=== PATIENT | female | born 1945 | race African-American/Black ===

== ENCOUNTER 2020-08-05 07:28 | Day surgery (SDC) | payer OTHER ==
[2020-08-04 09:24] VITALS: BMI 30.7
[~2020-08-05 07:28] MED LIST: TOBRAMYCIN/DEXAMETHASONE OPHTH. OINTMENT 1 TUBE TP ONE
[2020-08-05] MEDS ORDERED: ACETAMINOPHEN 325 MG TABLET (FP) PO PRN ×2 (07:29→13:58)
[2020-08-05] MEDS ORDERED: PHENYLEPHRINE 2.5% OPHTH SOLN 15 ML BOTTLE OP SCH (07:30)
[2020-08-05] MEDS ORDERED: TROPICAMIDE 1% OPHTH SOLN 15 ML BOTTLE OP SCH (07:30)
[2020-08-05] MEDS ORDERED: KETOROLAC TROMETHAMINE 0.5% EYE DROP 1 DROP DROPS OP SCH (07:30)
[2020-08-05] MEDS ORDERED: CIPROFLOXACIN HCL 0.3% OPHTH 2.5ML BOTTLE OP SCH (07:30)
--- OUTSIDE RECORDS SUMMARY | 2020-08-05 07:46 | XMS ---
:1945 Author Organization [facility] Support Name Relationship Address Phone RE, RETIRED Unavailable Unavailable Unavailable RE Unavailable Unavailable Unavailable [facility] [address] [address] [phone] [place] [address] Re-disclosure Warning The records that you are about to access may contain information from federally- assisted alcohol or drug abuse programs. If such information is present, then the following federally mandated warning applies: This information has been disclosed to you from records protected by federal confidentiality rules (42 CFR part 2). The federal rules prohibit you from making any further disclosure of this information unless further disclosure is expressly permitted by the written consent of the person to whom it pertains or as otherwise permitted by 42 CFR part 2. A general authorization for the release of medical or other information is NOT sufficient for this purpose. The Federal rules restrict any use of the information to criminally investigate or prosecute any alcohol or drug abuse patient.The records that you are about to access may contain highly sensitive health information, the redisclosure of which is protected by Article 27-F of the [facility] Public Health law. If you continue you may haveaccess to information: Regarding HIV / AIDS; Provided by facilities licensed or operated by the [facility] Office of Mental Health; or Provided by the [facility] Office for People With Developmental Disabilities. If such information is present, then the following [facility] mandated warning applies: This information has been disclosed to you from confidential records which are protected by state law. State law prohibits you from making any further disclosure of this information without the specific written consent of the person to whom it pertains, or as otherwise permitted by law. Any unauthorized further disclosure in violation of state law may result in a fine or alf sentence or both. A general authorization for the release of medical or other information is NOT sufficient authorization for further disclosure. Insurance Providers Payer name Policy type Policy ID Covered Covered green party's Policy P mitul / Coverage green party ID relationship to [employer] ormation type dang MEDICAID [id number] S [id number] MEDICARE [id number] SP [id number] MEDICAID [id number] SP [id number] Results ID Date Data Source [id number] 07/31/2020 12:00:00 PM EDT [facility] Name Value Range Interpretation Description Data Sup porting Code Source(s) Document(s ) SARS [facility] coronavirus 2 RNA This lab was ordered by [facility] and reported by [facility]. Procedure
[2020-08-05] MEDS ORDERED: TROPICAMIDE 1% OPHTH SOLN 15 ML BOTTLE ONE (07:59)
[2020-08-05] MEDS ORDERED: MIDAZOLAM HCL 2 MG/2 ML SINGLE DOSE VIAL ONE (08:23)
--- NOTE | 2020-08-05 08:40 | HP ---
- Patient Scheduled date of Surgery: 08/05/20 Scheduled Surgical Procedure: Phacoemulsification and cataract extraction with PCIOL Affected Eye: Left Chief Complaint (Indication for surgery): Decreased vision affecting ADLs - Ocular History Other Eye History: Other (narrow angles and glaucoma suspect) Eye Medications: vigamox 0/3 ,prolensa 0/1 Previous Eye Surgery: s/p LPI ou - Medical History Illnesses: Hypertension, Hypercholesterolemia, Diabetes Current Medications: Ambulatory Orders Hydrochlorothiazide [Hctz -] 25 mg PO DAILY PRN 11/24/13 Sertraline HCl [Zoloft -] 150 mg PO DAILY 11/24/13 metFORMIN HCL [Glucophage] 1,000 mg PO BID 11/24/13 Amlodipine Besylate [Norvasc -] 10 mg PO DAILY 09/01/15 Cholecalciferol (Vitamin D3) [Vitamin D3] 500 unit PO DAILY 08/04/20 Dunepezil 5 mg PO DAILY 08/04/20 Gabapentin 300 mg PO BID 08/04/20 Glimepiride 4 mg PO DAILY 08/04/20 Multivitamin 1 each PO DAILY 08/04/20 Quietiatine 25 mg PO DAILY 08/04/20 Rosuvastatin Calcium [Crestor] 5 mg PO DAILY 08/04/20 Losartan Potassium 100 mg PO DAILY 08/05/20 Allergies/Adverse Reactions: Allergies Allergy/AdvReac Type Severity Reaction Status Date / Time Penicillins Allergy Verified 08/05/20 07:24 Ocular Examination - Best Corrected Visual Acuity Distance: Right eye: 20/40- Distance: Left eye: 20/40 - External/Slit Lamp Examination Abnormalities: Pi Patent , plateau iris - Intraocular Pressure Intraocular Pressure (mm/Hg) - Right eye: 16 Intraocular Pressure (mm/Hg)-Left eye: 16 - Lens Lens: 3+ NS vacuoles - Vitreous/Retina Vitreous/Retina: C:D 0.45 m/v/p wnl - Special Examination M - Right eye: plano-o.25 x 045 M - Left eye: plano -0.75 x 045 K - Right eye: 44/44.25 x175 K - Left eye: 43.75/44.64 x 145 AL - Right eye: 23.12 AL - Left eye: 23.09 IOL bag: +22.0 AUOOTO IOL sulcus: +21.0 [id number] IOL AC: +19.0 [id number] - Impression Impression: Cataract Left Eye - Plan Plan: Phacoemulsification and cataract extraction - IOL Left eye Post-hospital care will be provided in office on: 08/13/20
--- NOTE | 2020-08-05 08:41 | HP ---
History & Physical Update - History History: Change (see notes) (H and p reviewed by Dr. Hurt ASA allergy noted) - Physical Physical: No Change - Assessment Assessment: No Change - Plan Plan: No Change
[2020-08-05] MEDS ORDERED: PROPOFOL 20 ML ONE (08:53)
[2020-08-05] MEDS ORDERED: KETAMINE HCL 200 MG/20 ML VIAL ONE (08:53)
[2020-08-05] MEDS ORDERED: TETRACAINE 0.5% OPHTH SOLN 2 ML BOTTLE OS ONE (08:55)
[2020-08-05] MEDS ORDERED: BUPIVACAINE HCL/PF 0.75% 10 ML VIAL PNB ONE ×2 (09:00→09:03)
[2020-08-05] MEDS ORDERED: LIDOCAINE HCL/PF 2% SDV 5ML VIAL INF ONE (09:00)
[2020-08-05] MEDS ORDERED: LIDOCAINE HCL 2% (50ML VIAL) INF ONE (09:03)
[2020-08-05] MEDS ORDERED: EPINEPHrine/PF 1 MG/1 ML (1:1,000) AMPULE SQ ONE (09:08)
[2020-08-05] MEDS ORDERED: CHONDROITIN SU A/HYALUR SOD 1 KIT IO ONE (09:09)
[2020-08-05] MEDS ORDERED: TOBRAMYCIN/DEXAMETHASONE OPHTH. OINTMENT 1 TUBE TP ONE (09:34)
--- NOTE | 2020-08-05 09:50 | OP ---
Ophthalmology Operative Note Pre-Operative Diagnosis: Cataract Affected Eye: Left Operation: Phacoemulsification and cataract extraction with PCIOL Findings: Ns Cataract left eye Anesthesiologist: Mynor Hatch Anesthesia: Retrobulbar Specimens Removed: none Estimated blood loss: < 1cc Drains & Tubes with Location: none Operative Report Dictated: Yes
--- NOTE | 2020-08-05 10:15 | OP ---
DATE OF OPERATION: DATE OF DICTATION: 08/05/2020 PREOPERATIVE DIAGNOSIS: Nuclear sclerotic cataract, left eye. POSTOPERATIVE DIAGNOSIS: Nuclear sclerotic cataract, left eye. PROCEDURE: Phacoemulsification and cataract extraction with insertion of posterior chamber intraocular lens, left eye. SURGEON: Viji Virgen MD DIESEL TRACTOR ENGINE MECHANIC: None. ANESTHESIA: Retrobulbar block. ANESTHESIOLOGIST: Mynor Hatch CRNA OPERATIVE PROCEDURE: Following satisfactory intravenous sedation, the patient received local anesthesia using a 50:50 mixture of lidocaine 2% and Marcaine 0.75%. A Van Lint lid block was delivered to the left eye using 3 mL of the mixture and a retrobulbar block using 4 mL of the mixture. The patient was then prepped and draped in the usual sterile fashion so as to expose only the left eye. Ophthalmic Betadine was instilled into the inferior fornix. The lashes were taped out of the surgical field. An eyelid speculum was placed into the left eye. A paracentesis was made in inferior temporal clear cornea at the limbus. Viscoelastic material was instilled into the anterior chamber via paracentesis. A 2.4-mm keratome blade was then used to create the main incision in temporal clear cornea at the limbus. A continuous curvilinear capsulorrhexis was performed using a cystotome and Utrata forceps. Hydrodissection of the lens cortex was performed using BSS on a cannula until the nucleus was noted to be freely rotating. The phacoemulsification tip was then inserted via the main wound and used to scope 2 perpendicular grooves into the lens nucleus. The nucleus was cracked into 4 quadrants. Each quadrant was lifted out of the capsule into the iris plane and individually phacoemulsified. The remaining cortical material was then aspirated using the irrigation/aspiration port. The capsular bag was inflated using ProVisc and a preloaded AcrySof lens model [id number] power +22.0 diopters was injected into the capsular bag. It was centered using a Sinskey hook. The residual viscoelastic material was removed from the anterior chamber using irrigation and aspiration. The wound edges were hydrated using BSS. The wound was tested for leakage and was found to be watertight. Tobradex ointment was placed in the eye, and the speculum was removed from the eye, and the eyelid was closed. A sterile dressing and shield were placed over the eye. The patient was transferred to the recovery room in stable condition, told to follow up in 1 day. VIJI VIRGEN M.D. [id number]
[2020-08-05 10:51] VITALS: BP 154/59; PULSE 84; TEMP 97.7
[2020-08-05] MEDS ORDERED: ONDANSETRON 4 MG/2 ML VIAL IVPUSH PRN (13:58)
[2020-08-05] MEDS ORDERED: LACTATED RINGERS SOLUTION 1,000 ML IV SCH (14:00)
== END 2020-08-05 10:52 | disposition home or self-care (01) ==
LOC: JASU-SURG 07:28
PROVIDERS: ATTEND Ophthalmology
PROC: 08RJ3JZ Replacement of Right Lens with Synthetic Substitute, Percutaneous Approach (ICD-10-PCS; principal; 2020-08-05 08:30)
DX: H25.12 Age-related nuclear cataract, left eye (principal); I10 Essential (primary) hypertension; E11.9 Type 2 diabetes mellitus without complications; E78.5 Hyperlipidemia, unspecified
CPT/HCPCS: 82962

== ENCOUNTER 2021-01-28 15:39 | Inpatient (IN) | payer OTHER ==
[2021-01-28 18:21] LABS: CALCIUM 10.3 mg/dL (8.5-10.1); EOS % 2.6 % (0-4.5); HEMATOCRIT 36.9 % (32.4-45.2); LYMPH % 19.5 % (8-40); MCH 28.4 pg (25.7-33.7); MCHC 32.5 g/dl (32.0-36.0); MEAN CELL VOLUME 87.4 fl (80-96); MEAN PLT VOLUME 8.4 fl (7.5-11.1); MONO % 4.8 % (3.8-10.2); NEUT % 72.1 % (42.8-82.8); PLATELET COUNT 463 K/MM3 (134-434); RBC 4.23 M/mm3 (3.60-5.2); RDW 14.7 % (11.6-15.6); WHITE BLOOD COUNT 10.3 K/mm3 (4.0-10.0)
[2021-01-28 18:23] LABS: BLOOD UREA NITROGEN 20.5 mg/dL (7-18)
[2021-01-28 18:26] LABS: CREATININE 1.6 mg/dL (0.55-1.3)
[2021-01-28 18:31] LABS: INR 1.03 (0.83-1.09); PROTHROMBIN TIME (PATIENT) 12.4 SEC (9.7-13.0)
[2021-01-28 18:33] LABS: ACTIVATED PTT 32.2 SECONDS (25.2-36.5)
[2021-01-28] MEDS ORDERED: SODIUM CHLORIDE 0.9% 500 ML INFUS.BAG IV ONE (19:20)
[2021-01-28] MEDS ORDERED: LOSARTAN POTASSIUM 50 MG TABLET PO ONE (22:10)
[2021-01-28] MEDS ORDERED: amLODIPine BESYLATE 5 MG TABLET (FP) PO ONE (22:10)
[2021-01-28] MEDS ORDERED: QUEtiapine FUMARATE 50 MG TABLET PO ONE (22:10)
[2021-01-28] MEDS ORDERED: DONEPEZIL HCL 5 MG TABLET (FP) PO SCH (22:15)
[2021-01-28] MEDS ORDERED: DONEPEZIL HCL 5 MG TABLET (FP) PO ONE (22:15)
[2021-01-28] MEDS ORDERED: QUEtiapine FUMARATE 25 MG TABLET ONE (22:17)
[2021-01-28] MEDS ORDERED: amLODIPine BESYLATE 5 MG TABLET (FP) ONE (22:17)
[2021-01-28] MEDS ORDERED: LOSARTAN POTASSIUM 50 MG TABLET ONE (22:17)
[2021-01-28 23:29] LABS: EPI CELLS 11 /uL (0-25.1); HYALINE CASTS 1 /uL (0-3.1); URINE APPEARANCE CLEAR; URINE BACTERIA >9,000 /uL (0-1359); URINE BILIRUBIN NEGATIVE (NEGATIVE); URINE COLOR YELLOW; URINE GLUCOSE (UA) NEGATIVE (NEGATIVE); URINE KETONE NEGATIVE (NEGATIVE); URINE LEUK ESTERASE TRACE (NEGATIVE); URINE NITRITE NEGATIVE (NEGATIVE); URINE PROTEIN NEGATIVE (NEGATIVE); URINE RBC 18 /uL (0-23.9); URINE UROBILINOGEN 0.2 mg/dL (0.2-1.0); URINE WBC 45 /uL (0-25.8)
[2021-01-28] MEDS ORDERED: DEXTROSE 5%-NORMAL SALINE 1,000 ML IV SCH (23:30)
[2021-01-29 02:24] VITALS: BMI 29.6
[2021-01-29] MEDS ORDERED: SERTRALINE HCL 50 MG TABLET (FP) PO SCH (07:00)
[2021-01-29 09:10] LABS: BASO % 1.2 % (0-2.0); EOS % 4.2 % (0-4.5); HEMOGLOBIN 11.4 GM/dL (10.7-15.3); LYMPH % 21.2 % (8-40); MCH 28.9 pg (25.7-33.7); MCHC 33.6 g/dl (32.0-36.0); MEAN CELL VOLUME 85.8 fl (80-96); MEAN PLT VOLUME 7.9 fl (7.5-11.1); MONO % 5.8 % (3.8-10.2); NEUT % 67.6 % (42.8-82.8); PLATELET COUNT 419 K/MM3 (134-434); RBC 3.97 M/mm3 (3.60-5.2); RDW 14.6 % (11.6-15.6); WHITE BLOOD COUNT 8.5 K/mm3 (4.0-10.0)
[2021-01-29 09:32] LABS: ALBUMIN 3.4 g/dl (3.4-5.0); BLOOD UREA NITROGEN 19.2 mg/dL (7-18); CALCIUM 9.4 mg/dL (8.5-10.1); MAGNESIUM 1.9 mg/dL (1.8-2.4)
[2021-01-29 09:35] LABS: CREATININE 1.3 mg/dL (0.55-1.3)
[2021-01-29 09:36] LABS: BILIRUBIN,TOTAL 0.5 mg/dL (0.2-1); TOT PROT 6.3 g/dl (6.4-8.2)
[2021-01-29 09:53] VITALS: TEMP 97.8
[2021-01-29] MEDS ORDERED: amLODIPine BESYLATE 10 MG TABLET (FP) PO SCH (10:00)
[2021-01-29] MEDS ORDERED: QUEtiapine FUMARATE 50 MG TABLET PO SCH (10:00)
[2021-01-29] MEDS ORDERED: HEPARIN NA (PORCINE) 5,000 UNITS/ML 1ML VIAL SQ SCH (10:00)
[2021-01-29] MEDS ORDERED: PATIENT'S OWN MEDICATION (NON-FORMULARY) (Sertraline Hcl [Sertraline Hcl] 100 MG Tablet) PO SCH (10:00)
[2021-01-29 14:21] VITALS: BP 158/74; PULSE 89
[2021-01-29] MEDS ORDERED: CEFTRIAXONE 1 GM in DEXTROSE 5%-WATER - 50 ML IVPB ONE (15:30)
[2021-01-29] MEDS ORDERED: DEXTROSE 5%-WATER - 50 ML IVPB ONE (15:38)
[2021-01-29] MEDS ORDERED: cefTRIAXone SODIUM 1 GM VIAL ONE (15:38)
[2021-01-29] MEDS ORDERED: ROSUVASTATIN CA 5 MG TABLET (FP) PO SCH (22:00)
[2021-01-29] MEDS ORDERED: DONEPEZIL HCL 5 MG TABLET (FP) PO SCH (22:00)
== END 2021-01-29 17:59 | disposition home or self-care (01) | DRG 638 ==
LOC: JER 15:39 → JERBED 21:09 → J6S 01-29 00:48
PROVIDERS: ADMIT Internal Medicine; ATTEND Internal Medicine
DX: E11.649 Type 2 diabetes mellitus with hypoglycemia without coma (principal); N39.0 Urinary tract infection, site not specified; F41.8 Other specified anxiety disorders; E78.5 Hyperlipidemia, unspecified; I10 Essential (primary) hypertension; F17.210 Nicotine dependence, cigarettes, uncomplicated; R53.1 Weakness; N17.9 Acute kidney failure, unspecified; D72.829 Elevated white blood cell count, unspecified
CPT/HCPCS: 36415; 70450-TC; 71045-TC-FY; 71250-TC; 73562-TC-LT-FY; 73562-TC-RT-FY; 80048; 80053; 81003; 82550; 82962; 83036; 83735; 84443; 84484; 85025; 85610; 85730; 87086; 87186; 93005; 93010; 99285-25; C9803; J1644; U0003; U0005

== ENCOUNTER 2021-02-08 12:12 | Inpatient (IN) | payer OTHER ==
[2021-02-08 15:16] LABS: BASO % 1.2 % (0-2.0); EOS % 4.4 % (0-4.5); HEMATOCRIT 28.4 % (32.4-45.2); HEMOGLOBIN 9.3 GM/dL (10.7-15.3); LYMPH % 19.5 % (8-40); MCH 28.4 pg (25.7-33.7); MCHC 32.7 g/dl (32.0-36.0); MEAN PLT VOLUME 8.7 fl (7.5-11.1); MONO % 5.5 % (3.8-10.2); NEUT % 69.4 % (42.8-82.8); PLATELET COUNT 405 K/MM3 (134-434); RBC 3.26 M/mm3 (3.60-5.2); RDW 14.7 % (11.6-15.6); WHITE BLOOD COUNT 9.3 K/mm3 (4.0-10.0)
[2021-02-08 15:23] LABS: INR 0.99 (0.83-1.09); PROTHROMBIN TIME (PATIENT) 12.2 SEC (9.7-13.0)
[2021-02-08 15:25] LABS: ACTIVATED PTT 28.9 SECONDS (25.2-36.5)
[2021-02-08 15:38] LABS: CALCIUM 9.6 mg/dL (8.5-10.1)
[2021-02-08 15:39] LABS: ALBUMIN 3.3 g/dl (3.4-5.0); BLOOD UREA NITROGEN 21.2 mg/dL (7-18)
[2021-02-08 15:42] LABS: CREATININE 1.8 mg/dL (0.55-1.3)
[2021-02-08 15:43] LABS: BILIRUBIN,TOTAL 0.3 mg/dL (0.2-1); TOT PROT 6.7 g/dl (6.4-8.2)
[2021-02-08 18:37] LABS: URINE APPEARANCE CLEAR; URINE BILIRUBIN NEGATIVE (NEGATIVE); URINE COLOR YELLOW; URINE GLUCOSE (UA) NEGATIVE (NEGATIVE); URINE KETONE NEGATIVE (NEGATIVE); URINE LEUK ESTERASE NEGATIVE (NEGATIVE); URINE NITRITE NEGATIVE (NEGATIVE); URINE PROTEIN NEGATIVE (NEGATIVE); URINE UROBILINOGEN 0.2 mg/dL (0.2-1.0)
[2021-02-08] MEDS ORDERED: DONEPEZIL HCL 5 MG TABLET (FP) ONE (22:21)
[2021-02-08] MEDS: INSULIN SLIDING SCALE (NOVOLOG) 1 VIAL SQ SCH (22:59)
[2021-02-08] MEDS: ROSUVASTATIN CA 5 MG TABLET (FP) PO SCH (22:59)
[2021-02-08] MEDS: DONEPEZIL HCL 5 MG TABLET (FP) PO SCH (22:59)
[2021-02-09 02:08] VITALS: BMI 30.2
[2021-02-09] MEDS: SODIUM CHLORIDE 1,000 ML IV SCH ×3 (05:37→19:36)
[2021-02-09] MEDS: INSULIN SLIDING SCALE (NOVOLOG) 1 VIAL SQ SCH ×4 (06:02→21:29)
[2021-02-09 08:17] LABS: BASO % 1.1 % (0-2.0); EOS % 5.8 % (0-4.5); HEMATOCRIT 27.2 % (32.4-45.2); HEMOGLOBIN 9.2 GM/dL (10.7-15.3); LYMPH % 17.4 % (8-40); MEAN CELL VOLUME 85.5 fl (80-96); MEAN PLT VOLUME 7.9 fl (7.5-11.1); MONO % 5.8 % (3.8-10.2); NEUT % 69.9 % (42.8-82.8); PLATELET COUNT 390 K/MM3 (134-434); RBC 3.18 M/mm3 (3.60-5.2); RDW 14.6 % (11.6-15.6); WHITE BLOOD COUNT 8.4 K/mm3 (4.0-10.0)
[2021-02-09 08:45] LABS: BILIRUBIN,TOTAL 0.3 mg/dL (0.2-1); BLOOD UREA NITROGEN 14.9 mg/dL (7-18)
[2021-02-09 08:46] LABS: TOT PROT 6.2 g/dl (6.4-8.2)
[2021-02-09 08:48] LABS: CALCIUM 9.5 mg/dL (8.5-10.1); CREATININE 1.6 mg/dL (0.55-1.3); MAGNESIUM 2.1 mg/dL (1.8-2.4); PHOSPHOROUS 2.9 mg/dL (2.5-4.9)
[2021-02-09] MEDS: NICOTINE 14 MG/24 HOURS TOPICAL PATCH TD SCH (09:43)
[2021-02-09] MEDS: CHOLECALCIFEROL (VIT D3) 1,000 UNIT (25 MCG) TABLET PO SCH (09:43)
[2021-02-09] MEDS: GABAPENTIN 300 MG CAPSULE PO SCH (09:43)
[2021-02-09] MEDS ORDERED: LOSARTAN POTASSIUM 50 MG TABLET PO SCH (10:00)
[2021-02-09] MEDS: SERTRALINE HCL 50 MG TABLET (FP) PO SCH (11:32)
[2021-02-09] MEDS: OSELTAMIVIR PHOSPHATE 30 MG CAPSULE PO SCH ×2 (12:21→21:28)
[2021-02-09] MEDS ORDERED: ALBUTEROL SO4 HFA INHALER IH PRN (13:53)
[2021-02-09] MEDS: DOCUSATE SODIUM 100 MG CAPSULE (FP) PO SCH (14:32)
[2021-02-09] MEDS ORDERED: METOPROLOL TARTRATE 50 MG TABLET (FP) PO ONE (19:44)
[2021-02-09] MEDS: ROSUVASTATIN CA 5 MG TABLET (FP) PO SCH (21:28)
[2021-02-09] MEDS: CELECOXIB 200 MG CAPSULE PO SCH (21:28)
[2021-02-09] MEDS: QUEtiapine FUMARATE 50 MG TABLET PO SCH (21:28)
[2021-02-09] MEDS: DONEPEZIL HCL 5 MG TABLET (FP) PO SCH (21:29)
[2021-02-09] MEDS ORDERED: hydrALAZINE HCL 50 MG TABLET (FP) PO ONE (23:37)
[2021-02-09] MEDS ORDERED: hydrALAZINE HCL 25 MG TABLET (FP) PO ONE (23:45)
[2021-02-10] MEDS: INSULIN SLIDING SCALE (NOVOLOG) 1 VIAL SQ SCH ×4 (06:26→21:33)
[2021-02-10 08:08] LABS: HEMATOCRIT 26.6 % (32.4-45.2); MCHC 33.8 g/dl (32.0-36.0); MEAN CELL VOLUME 85.9 fl (80-96); MEAN PLT VOLUME 8.1 fl (7.5-11.1); PLATELET COUNT 394 K/MM3 (134-434); RBC 3.09 M/mm3 (3.60-5.2); RDW 14.6 % (11.6-15.6); WHITE BLOOD COUNT 7.7 K/mm3 (4.0-10.0)
[2021-02-10 08:20] LABS: CALCIUM 9.6 mg/dL (8.5-10.1)
[2021-02-10 08:21] LABS: BLOOD UREA NITROGEN 16.7 mg/dL (7-18); MAGNESIUM 2.2 mg/dL (1.8-2.4)
[2021-02-10 08:24] LABS: CREATININE 1.5 mg/dL (0.55-1.3); PHOSPHOROUS 3.5 mg/dL (2.5-4.9)
[2021-02-10] MEDS ORDERED: QUEtiapine FUMARATE 25 MG TABLET ONE (08:58)
[2021-02-10] MEDS: QUEtiapine FUMARATE 50 MG TABLET PO SCH ×2 (09:52→21:22)
[2021-02-10] MEDS: CELECOXIB 200 MG CAPSULE PO SCH ×2 (09:52→21:22)
[2021-02-10] MEDS: CHOLECALCIFEROL (VIT D3) 1,000 UNIT (25 MCG) TABLET PO SCH (09:53)
[2021-02-10] MEDS: SERTRALINE HCL 50 MG TABLET (FP) PO SCH (09:53)
[2021-02-10] MEDS: OSELTAMIVIR PHOSPHATE 30 MG CAPSULE PO SCH ×2 (09:54→21:22)
[2021-02-10] MEDS: GABAPENTIN 300 MG CAPSULE PO SCH (09:54)
[2021-02-10] MEDS: amLODIPine BESYLATE 10 MG TABLET (FP) PO SCH (09:54)
[2021-02-10] MEDS: DOCUSATE SODIUM 100 MG CAPSULE (FP) PO SCH (09:54)
[2021-02-10] MEDS: NICOTINE 14 MG/24 HOURS TOPICAL PATCH TD SCH (09:56)
[2021-02-10] MEDS: MULTIVIT-MINERALS ORAL LIQUID PO SCH (10:28)
[2021-02-10] MEDS: FERROUS SO4 325 MG TABLET (FP) PO SCH (10:28)
[2021-02-10] MEDS: THIAMINE HCL 100 MG TABLET (FP) PO SCH (15:32)
[2021-02-10] MEDS: SODIUM CHLORIDE 0.45% 1,000 ML IV SCH (18:12)
[2021-02-10] MEDS: DONEPEZIL HCL 5 MG TABLET (FP) PO SCH (21:22)
[2021-02-10] MEDS: ROSUVASTATIN CA 5 MG TABLET (FP) PO SCH (21:22)
[2021-02-11] MEDS: INSULIN SLIDING SCALE (NOVOLOG) 1 VIAL SQ SCH ×4 (06:09→21:56)
[2021-02-11] MEDS ORDERED: QUEtiapine FUMARATE 25 MG TABLET ONE (09:02)
[2021-02-11] MEDS: amLODIPine BESYLATE 10 MG TABLET (FP) PO SCH (09:09)
[2021-02-11] MEDS: CHOLECALCIFEROL (VIT D3) 1,000 UNIT (25 MCG) TABLET PO SCH (09:09)
[2021-02-11] MEDS: GABAPENTIN 300 MG CAPSULE PO SCH (09:09)
[2021-02-11] MEDS: CELECOXIB 200 MG CAPSULE PO SCH ×2 (09:10→21:31)
[2021-02-11] MEDS: NICOTINE 14 MG/24 HOURS TOPICAL PATCH TD SCH (09:10)
[2021-02-11] MEDS: DOCUSATE SODIUM 100 MG CAPSULE (FP) PO SCH (09:10)
[2021-02-11] MEDS: MULTIVIT-MINERALS ORAL LIQUID PO SCH (09:10)
[2021-02-11] MEDS: QUEtiapine FUMARATE 50 MG TABLET PO SCH ×2 (09:10→21:31)
[2021-02-11] MEDS: THIAMINE HCL 100 MG TABLET (FP) PO SCH (09:10)
[2021-02-11] MEDS: SERTRALINE HCL 50 MG TABLET (FP) PO SCH (09:11)
[2021-02-11] MEDS: FERROUS SO4 325 MG TABLET (FP) PO SCH (09:11)
[2021-02-11] MEDS: OSELTAMIVIR PHOSPHATE 30 MG CAPSULE PO SCH ×2 (09:11→21:31)
[2021-02-11 10:08] LABS: HEMATOCRIT 28.1 % (32.4-45.2); HEMOGLOBIN 9.7 GM/dL (10.7-15.3); MCH 29.3 pg (25.7-33.7); MCHC 34.4 g/dl (32.0-36.0); MEAN CELL VOLUME 85.2 fl (80-96); PLATELET COUNT 428 K/MM3 (134-434); RBC 3.29 M/mm3 (3.60-5.2); WHITE BLOOD COUNT 8.6 K/mm3 (4.0-10.0)
[2021-02-11 10:39] LABS: CALCIUM 9.6 mg/dL (8.5-10.1)
[2021-02-11 10:40] LABS: BLOOD UREA NITROGEN 18.4 mg/dL (7-18); MAGNESIUM 2.3 mg/dL (1.8-2.4)
[2021-02-11 10:43] LABS: CREATININE 1.5 mg/dL (0.55-1.3)
[2021-02-11] MEDS ORDERED: LOSARTAN POTASSIUM 50 MG TABLET PO SCH (10:45)
[2021-02-11] MEDS: BUDESONIDE/FORMETEROL FUMARATE 80/4.5 mcg INHALER IH SCH ×2 (11:59→21:31)
[2021-02-11] MEDS: SODIUM CHLORIDE 0.45% 1,000 ML IV SCH ×2 (14:22→21:27)
[2021-02-11 18:11] VITALS: TEMP 98
[2021-02-11 20:24] VITALS: BP 185/98; PULSE 78
[2021-02-11] MEDS: DONEPEZIL HCL 5 MG TABLET (FP) PO SCH (21:31)
[2021-02-11] MEDS: ROSUVASTATIN CA 5 MG TABLET (FP) PO SCH (21:31)
== END 2021-02-11 22:16 | DRG 684 ==
LOC: JER 12:12 → JERBED 15:55 → UNDOADMIN 16:37 → JERBED 16:37 → J6WEST-2 02-09 01:43
PROVIDERS: ADMIT Internal Medicine; ATTEND Internal Medicine
DX: N17.9 Acute kidney failure, unspecified (principal); G30.9 Alzheimer's disease, unspecified; R62.7 Adult failure to thrive; E11.9 Type 2 diabetes mellitus without complications; F02.80 Dementia in other diseases classified elsewhere, unspecified severity, without behavioral disturbance, psychotic disturbance, mood disturbance, and anxiety; E78.5 Hyperlipidemia, unspecified; R29.6 Repeated falls; G93.89 Other specified disorders of brain; E88.09 Other disorders of plasma-protein metabolism, not elsewhere classified; D64.9 Anemia, unspecified; I12.9 Hypertensive chronic kidney disease with stage 1 through stage 4 chronic kidney disease, or unspecified chronic kidney disease; N18.9 Chronic kidney disease, unspecified; J44.9 Chronic obstructive pulmonary disease, unspecified; J10.1 Influenza due to other identified influenza virus with other respiratory manifestations; E86.0 Dehydration; E66.9 Obesity, unspecified; F17.210 Nicotine dependence, cigarettes, uncomplicated; Z68.30 Body mass index [BMI] 30.0-30.9, adult; R26.81 Unsteadiness on feet; M48.00 Spinal stenosis, site unspecified; Z88.0 Allergy status to penicillin; Z85.3 Personal history of malignant neoplasm of breast
CPT/HCPCS: 36415; 70450-TC; 71045-TC-FY; 80048; 80053; 81003; 82607; 82728; 82962; 83540; 83550; 83735; 84100; 85025; 85027; 85610; 85730; 87086; 87804; 93005; 93010; 97116-GP; 97162-GP; 99285-25; C9803; U0003; U0005

== ENCOUNTER 2021-05-11 08:17 | Inpatient (IN) | payer OTHER ==
[2021-05-11] MEDS ORDERED: ACETAMINOPHEN 1000 MG/100 ML VIAL (NON FORMULARY) IVPB ONE (08:44)
[2021-05-11] MEDS ORDERED: ACETAMINOPHEN INJECTION 100 ML IVPB ONE (10:25)
[2021-05-11 10:35] LABS: BASO % 0.8 % (0-2.0); EOS % 2.5 % (0-4.5); HEMATOCRIT 33.6 % (32.4-45.2); HEMOGLOBIN 10.7 GM/dL (10.7-15.3); LYMPH % 12.7 % (8-40); MCHC 31.9 g/dl (32.0-36.0); MEAN CELL VOLUME 75.1 fl (80-96); MEAN PLT VOLUME 8.2 fl (7.5-11.1); MONO % 5.3 % (3.8-10.2); NEUT % 78.7 % (42.8-82.8); PLATELET COUNT 356 10^3/uL (134-434); RBC 4.47 M/mm3 (3.60-5.2); RDW 15.5 % (11.6-15.6); WHITE BLOOD COUNT 8.8 K/mm3 (4.0-10.0)
[2021-05-11 10:56] LABS: CHLORIDE 102 mmol/L (98-107); SODIUM 136 mmol/L (136-145)
[2021-05-11 10:58] LABS: ALBUMIN 3.4 g/dl (3.4-5.0); ANION GAP 6 MMOL/L (8-16); BLOOD UREA NITROGEN 40.1 mg/dL (7-18); CALCIUM 9.5 mg/dL (8.5-10.1); CO2 29 mmol/L (21-32)
[2021-05-11 11:00] LABS: SGPT/ALT 21 U/L (13-61)
[2021-05-11 11:01] LABS: CREATININE 1.7 mg/dL (0.55-1.3); SGOT/AST 10 U/L (15-37)
[2021-05-11 11:02] LABS: BILIRUBIN,TOTAL 0.3 mg/dL (0.2-1); TOT PROT 6.9 g/dl (6.4-8.2)
[2021-05-11 11:04] LABS: ALK PHOS 208 U/L (45-117)
[2021-05-11 11:20] LABS: GLUCOSE,RANDOM 424 mg/dL (74-106)
[2021-05-11] MEDS ORDERED: SODIUM CHLORIDE 1,000 ML IV STA (11:27)
[2021-05-11 12:23] LABS: URINE APPEARANCE CLEAR; URINE BILIRUBIN NEGATIVE (NEGATIVE); URINE COLOR YELLOW; URINE GLUCOSE (UA) 3+ (NEGATIVE); URINE KETONE NEGATIVE (NEGATIVE); URINE LEUK ESTERASE NEGATIVE (NEGATIVE); URINE NITRITE NEGATIVE (NEGATIVE); URINE PROTEIN TRACE (NEGATIVE); URINE UROBILINOGEN 0.2 mg/dL (0.2-1.0)
[2021-05-11] MEDS ORDERED: SODIUM CHLORIDE 1,000 ML IV SCH (15:15)
[2021-05-11] MEDS ORDERED: ACETAMINOPHEN 325 MG TABLET (FP) PO PRN (16:38)
[2021-05-11] MEDS ORDERED: INSULIN SLIDING SCALE (NOVOLOG) 1 VIAL SQ ONE (16:39)
[2021-05-11] MEDS: INSULIN SLIDING SCALE (NOVOLOG) 1 VIAL SQ SCH ×2 (16:40→22:31)
[2021-05-11] MEDS ORDERED: ACETAMINOPHEN 325 MG TABLET (FP) ONE (16:46)
[2021-05-11] MEDS ORDERED: LABETALOL HCL 100 MG TABLET (FP) PO ONE (16:47)
[2021-05-11] MEDS ORDERED: GABAPENTIN 300 MG CAPSULE PO ONE (16:49)
[2021-05-11 17:50] VITALS: BMI 29.6
[2021-05-11] MEDS ORDERED: INSULIN (NOVOLOG) ASPART 100 UNITS/ML 10ML VIAL ONE (20:43)
[2021-05-11] MEDS ORDERED: ROSUVASTATIN CA 5 MG TABLET (FP) PO SCH (22:00)
[2021-05-11] MEDS: SERTRALINE HCL 50 MG TABLET (FP) PO SCH (22:31)
[2021-05-12] MEDS: INSULIN SLIDING SCALE (NOVOLOG) 1 VIAL SQ SCH ×3 (07:18→21:14)
[2021-05-12] MEDS: SERTRALINE HCL 50 MG TABLET (FP) PO SCH ×2 (09:15→21:03)
[2021-05-12] MEDS ORDERED: amLODIPine BESYLATE 10 MG TABLET (FP) PO SCH (10:00)
[2021-05-12] MEDS ORDERED: DONEPEZIL HCL 5 MG TABLET (FP) PO SCH (10:00)
[2021-05-12 11:04] LABS: EOS % 3.3 % (0-4.5); HEMATOCRIT 30.2 % (32.4-45.2); HEMOGLOBIN 9.7 GM/dL (10.7-15.3); LYMPH % 13.9 % (8-40); MCH 24.4 pg (25.7-33.7); MCHC 32.2 g/dl (32.0-36.0); MEAN CELL VOLUME 75.6 fl (80-96); MEAN PLT VOLUME 8.4 fl (7.5-11.1); NEUT % 74.8 % (42.8-82.8); PLATELET COUNT 391 10^3/uL (134-434); RBC 3.99 M/mm3 (3.60-5.2); RDW 15.4 % (11.6-15.6); WHITE BLOOD COUNT 10.4 K/mm3 (4.0-10.0)
[2021-05-12] MEDS ORDERED: INSULIN (NOVOLOG) ASPART 100 UNITS/ML 10ML VIAL ONE (11:22)
[2021-05-12 11:35] LABS: ALBUMIN 3.2 g/dl (3.4-5.0); BLOOD UREA NITROGEN 26.8 mg/dL (7-18)
[2021-05-12 11:39] LABS: BILIRUBIN,TOTAL 0.3 mg/dL (0.2-1); CALCIUM 9.2 mg/dL (8.5-10.1); CREATININE 1.4 mg/dL (0.55-1.3)
[2021-05-12 11:40] LABS: MAGNESIUM 2.1 mg/dL (1.8-2.4)
[2021-05-12 11:47] LABS: TOT PROT 6.5 g/dl (6.4-8.2)
[2021-05-12] MEDS ORDERED: NITROGLYCERIN 2% OINTMENT - 1GM PACKET TD PRN (12:00)
[2021-05-12] MEDS ORDERED: ONDANSETRON 4 MG/2 ML VIAL IVPUSH PRN ×2 (13:05→16:39)
[2021-05-12] MEDS ORDERED: ROPIVACAINE HCL 0.5% 30ML VIAL ONE (13:14)
[2021-05-12] MEDS ORDERED: LIDOCAINE HCL 2% (20ML MULTI-DOSE VIAL) ONE (13:14)
[2021-05-12] MEDS ORDERED: LACTATED RINGERS SOLUTION 1,000 ML IV SCH (13:15)
[2021-05-12] MEDS ORDERED: MIDAZOLAM HCL 2 MG/2 ML SINGLE DOSE VIAL ONE ×2 (13:21)
[2021-05-12] MEDS ORDERED: PROPOFOL 20 ML ONE ×4 (13:22→13:53)
[2021-05-12] MEDS ORDERED: VECURONIUM BROMIDE 10 MG/10 ML VIAL ONE (13:22)
[2021-05-12] MEDS ORDERED: ceFAZolin SODIUM 1 GM VIAL IVPB ONE (14:06)
[2021-05-12] MEDS ORDERED: LABETALOL HCL 5 MG/1 ML (100MG/20 ML VIAL) IVPUSH ONE ×2 (15:43→15:45)
[2021-05-12] MEDS ORDERED: LABETALOL HCL 5 MG/1 ML (100MG/20 ML VIAL) ONE (15:51)
[2021-05-12] MEDS ORDERED: hydrALAZINE HCL 20 MG/ML VIAL IVPUSH ONE ×2 (16:25→16:33)
[2021-05-12] MEDS ORDERED: hydrALAZINE HCL 20 MG/ML VIAL ONE (16:31)
[2021-05-12] MEDS ORDERED: ACETAMINOPHEN 325 MG TABLET (FP) PO PRN (16:39)
[2021-05-12] MEDS: LACTATED RINGERS SOLUTION 1,000 ML IV SCH (18:20)
[2021-05-12] MEDS: ceFAZolin 2 GRAM PREMIX BAG IVPB SCH (21:03)
[2021-05-12] MEDS: ROSUVASTATIN CA 5 MG TABLET (FP) PO SCH (21:03)
[2021-05-12] MEDS: THIAMINE HCL 200 MG/2 ML VIAL IVPB SCH (21:58)
[2021-05-12] MEDS ORDERED: ceFAZolin 2 GRAM PREMIX BAG IVPB SCH (22:00)
[2021-05-13] MEDS: ceFAZolin 2 GRAM PREMIX BAG IVPB SCH (06:54)
[2021-05-13] MEDS: INSULIN SLIDING SCALE (NOVOLOG) 1 VIAL SQ SCH ×4 (06:58→21:34)
[2021-05-13] MEDS ORDERED: POLYETHYLENE GLYCOL (HEALTHYLAX) 3350 17 GM PACKET PO PRN (08:51)
[2021-05-13] MEDS: amLODIPine BESYLATE 10 MG TABLET (FP) PO SCH (09:20)
[2021-05-13] MEDS: SERTRALINE HCL 50 MG TABLET (FP) PO SCH ×2 (09:20→21:33)
[2021-05-13] MEDS: MEMANTINE HCL 5 MG TABLET (UD) PO SCH (09:20)
[2021-05-13] MEDS: THIAMINE HCL 200 MG/2 ML VIAL IVPB SCH (09:20)
[2021-05-13] MEDS: LACTATED RINGERS SOLUTION 1,000 ML IV SCH ×2 (09:20→16:54)
[2021-05-13 09:28] LABS: HEMATOCRIT 31.5 % (32.4-45.2); MCH 24.2 pg (25.7-33.7); MCHC 31.9 g/dl (32.0-36.0); MEAN CELL VOLUME 75.9 fl (80-96); MEAN PLT VOLUME 8.8 fl (7.5-11.1); PLATELET COUNT 404 10^3/uL (134-434); RBC 4.15 M/mm3 (3.60-5.2); RDW 15.8 % (11.6-15.6); WHITE BLOOD COUNT 12.2 K/mm3 (4.0-10.0)
[2021-05-13 09:53] LABS: CALCIUM 8.8 mg/dL (8.5-10.1)
[2021-05-13 09:54] LABS: ALBUMIN 3.1 g/dl (3.4-5.0); BLOOD UREA NITROGEN 20.6 mg/dL (7-18); MAGNESIUM 1.9 mg/dL (1.8-2.4)
[2021-05-13 09:57] LABS: CREATININE 1.5 mg/dL (0.55-1.3)
[2021-05-13 09:58] LABS: BILIRUBIN,TOTAL 0.3 mg/dL (0.2-1); TOT PROT 6.4 g/dl (6.4-8.2)
[2021-05-13] MEDS ORDERED: PT OWN MED DRAWER 7, Y5N ONE (18:02)
[2021-05-13] MEDS: NITROGLYCERIN 2% OINTMENT - 1GM PACKET TD PRN (18:03)
[2021-05-13] MEDS: ROSUVASTATIN CA 5 MG TABLET (FP) PO SCH (21:33)
[2021-05-14] MEDS ORDERED: PT OWN MED DRAWER 7, Y5N ONE ×3 (00:38→20:47)
[2021-05-14] MEDS: NITROGLYCERIN 2% OINTMENT - 1GM PACKET TD PRN ×2 (00:55→20:53)
[2021-05-14] MEDS: INSULIN SLIDING SCALE (NOVOLOG) 1 VIAL SQ SCH ×3 (06:04→17:00)
[2021-05-14 09:30] LABS: BASO % 0.8 % (0-2.0); EOS % 1.8 % (0-4.5); HEMATOCRIT 30.9 % (32.4-45.2); LYMPH % 11.3 % (8-40); MCH 24.2 pg (25.7-33.7); MCHC 32.3 g/dl (32.0-36.0); MEAN CELL VOLUME 74.9 fl (80-96); MEAN PLT VOLUME 8.7 fl (7.5-11.1); MONO % 5.6 % (3.8-10.2); NEUT % 80.5 % (42.8-82.8); PLATELET COUNT 398 10^3/uL (134-434); RBC 4.13 M/mm3 (3.60-5.2); RDW 15.9 % (11.6-15.6); WHITE BLOOD COUNT 10.1 K/mm3 (4.0-10.0)
[2021-05-14 09:51] LABS: BLOOD UREA NITROGEN 19.5 mg/dL (7-18); CALCIUM 9.2 mg/dL (8.5-10.1)
[2021-05-14] MEDS: SERTRALINE HCL 50 MG TABLET (FP) PO SCH (09:51)
[2021-05-14] MEDS: amLODIPine BESYLATE 10 MG TABLET (FP) PO SCH (09:51)
[2021-05-14] MEDS: MEMANTINE HCL 5 MG TABLET (UD) PO SCH (09:51)
[2021-05-14 09:52] LABS: MAGNESIUM 1.9 mg/dL (1.8-2.4)
[2021-05-14 09:55] LABS: CREATININE 1.3 mg/dL (0.55-1.3); PHOSPHOROUS 2.8 mg/dL (2.5-4.9)
[2021-05-14 09:56] LABS: BILIRUBIN,TOTAL 0.4 mg/dL (0.2-1); TOT PROT 6.6 g/dl (6.4-8.2)
[2021-05-14] MEDS ORDERED: THIAMINE HCL 100 MG TABLET (FP) PO SCH (10:00)
[2021-05-14 11:05] VITALS: TEMP 98
[2021-05-14] MEDS ORDERED: LOSARTAN POTASSIUM 50 MG TABLET PO SCH (15:45)
[2021-05-14 20:55] VITALS: BP 172/80; PULSE 99
== END 2021-05-14 20:55 | DRG 493 ==
LOC: JER 08:17 → JERBED 13:25 → J6S 17:13
PROVIDERS: ATTEND Student in an Organized Health Care Education/Training Program
PROC: 0QSH04Z Reposition Left Tibia with Internal Fixation Device, Open Approach (ICD-10-PCS; 2021-05-12)
PROC: 0QSK04Z Reposition Left Fibula with Internal Fixation Device, Open Approach (ICD-10-PCS; principal; 2021-05-12 13:00)
DX: S82.842A Displaced bimalleolar fracture of left lower leg, initial encounter for closed fracture (principal); N17.9 Acute kidney failure, unspecified; E78.5 Hyperlipidemia, unspecified; G30.9 Alzheimer's disease, unspecified; F02.80 Dementia in other diseases classified elsewhere, unspecified severity, without behavioral disturbance, psychotic disturbance, mood disturbance, and anxiety; Z79.84 Long term (current) use of oral hypoglycemic drugs; E11.22 Type 2 diabetes mellitus with diabetic chronic kidney disease; R25.1 Tremor, unspecified; F32.9 Major depressive disorder, single episode, unspecified; F41.1 Generalized anxiety disorder; E11.65 Type 2 diabetes mellitus with hyperglycemia; I12.9 Hypertensive chronic kidney disease with stage 1 through stage 4 chronic kidney disease, or unspecified chronic kidney disease; N18.9 Chronic kidney disease, unspecified; F17.210 Nicotine dependence, cigarettes, uncomplicated; E11.40 Type 2 diabetes mellitus with diabetic neuropathy, unspecified; R29.6 Repeated falls; W19.XXXA Unspecified fall, initial encounter; Y93.89 Activity, other specified; Y92.003 Bedroom of unspecified non-institutional (private) residence as the place of occurrence of the external cause; Y99.8 Other external cause status
CPT/HCPCS: 36415; 70450-TC; 71045-TC-FY; 72125-TC; 72192-TC; 73610-TC-LT-FY; 73630-TC-LT; 76000-TC-FY; 80053; 81003; 82550; 82607; 82962; 83036; 83735; 84100; 84443; 84484; 85025; 85027; 86780; 87077; 87086; 93005; 93010; 94760; 97161-GP; 99285-25; C9803; J0131; U0003; U0005

== ENCOUNTER 2021-05-27 10:56 | Inpatient (IN) | payer OTHER ==
[2021-05-27] MEDS ORDERED: SODIUM CHLORIDE 1,000 ML IV STA (12:38)
[2021-05-27] MEDS ORDERED: ACETAMINOPHEN 1000 MG/100 ML VIAL (NON FORMULARY) IVPB ONE (12:44)
[2021-05-27] MEDS ORDERED: ACETAMINOPHEN INJECTION 100 ML IVPB ONE (14:14)
[2021-05-27 14:33] LABS: BASO % 0.1 % (0-2.0); EOS % 0.2 % (0-4.5); HEMATOCRIT 33.8 % (32.4-45.2); HEMOGLOBIN 10.2 GM/dL (10.7-15.3); LYMPH % 6.9 % (8-40); MCH 23.3 pg (25.7-33.7); MCHC 30.1 g/dl (32.0-36.0); MEAN CELL VOLUME 77.2 fl (80-96); MEAN PLT VOLUME 8.8 fl (7.5-11.1); MONO % 5.6 % (3.8-10.2); NEUT % 87.2 % (42.8-82.8); PLATELET COUNT 399 10^3/uL (134-434); RBC 4.37 M/mm3 (3.60-5.2); RDW 17.5 % (11.6-15.6); WHITE BLOOD COUNT 14.5 K/mm3 (4.0-10.0)
[2021-05-27 14:39] LABS: INR 1.22 (0.83-1.09); PROTHROMBIN TIME (PATIENT) 14.7 SEC (9.7-13.0)
[2021-05-27 14:42] LABS: ACTIVATED PTT 21.8 SECONDS (25.2-36.5)
[2021-05-27 14:54] LABS: CHLORIDE 124 mmol/L (98-107); SODIUM 155 mmol/L (136-145)
[2021-05-27 14:56] LABS: ANION GAP 8 MMOL/L (8-16); CALCIUM 9.2 mg/dL (8.5-10.1); CO2 23 mmol/L (21-32)
[2021-05-27 14:59] LABS: CREATININE 2.6 mg/dL (0.55-1.3); SGOT/AST 15 U/L (15-37); SGPT/ALT 23 U/L (13-61)
[2021-05-27 15:01] LABS: BILIRUBIN,TOTAL 0.3 mg/dL (0.2-1); TOT PROT 6.7 g/dl (6.4-8.2)
[2021-05-27 15:02] LABS: ALK PHOS 150 U/L (45-117)
[2021-05-27] MEDS ORDERED: MEROPENEM 500 MG in DEXTROSE 5%-WATER 100 ML IVPB ONE (15:05)
[2021-05-27 15:12] LABS: ALBUMIN 2.2 g/dl (3.4-5.0); GLUCOSE,RANDOM 408 mg/dL (74-106)
[2021-05-27 15:23] LABS: EPI CELLS >36 /uL (0-25.1); HYALINE CASTS 16 /uL (0-3.1); URINE APPEARANCE TURBID; URINE BACTERIA 8195 /uL (0-1359); URINE BILIRUBIN NEGATIVE (NEGATIVE); URINE COLOR YELLOW; URINE GLUCOSE (UA) NEGATIVE (NEGATIVE); URINE KETONE TRACE (NEGATIVE); URINE LEUK ESTERASE 3+ (NEGATIVE); URINE NITRITE POSITIVE (NEGATIVE); URINE PROTEIN 1+ (NEGATIVE); URINE UROBILINOGEN 0.2 mg/dL (0.2-1.0); URINE WBC 3975 /uL (0-25.8)
[2021-05-27 15:24] LABS: URINE RBC 410.9 /uL (0-23.9)
[2021-05-27] MEDS ORDERED: MEROPENEM 500 MG VIAL (RESTRICTED TO ID) IVPB ONE (15:26)
[2021-05-27 15:30] LABS: URINE CRYSTALS NON SEEN /hpf
[2021-05-27 15:31] LABS: YEAST NON SEEN (NEGATIVE)
[2021-05-27] MEDS ORDERED: VANCOMYCIN HCL 1,500 MG in DEXTROSE 5%-WATER - 500 ML IVPB ONE (15:53)
[2021-05-27] MEDS ORDERED: VANCOMYCIN 1 GM in D5W (PRE-DOCKED) 1,000 MG/250 ML IVPB ONE (16:03)
[2021-05-27] MEDS ORDERED: POLYETHYLENE GLYCOL (HEALTHYLAX) 3350 17 GM PACKET PO PRN (16:33)
[2021-05-27] MEDS ORDERED: ACETAMINOPHEN 325 MG TABLET (FP) PO PRN (16:33)
[2021-05-27] MEDS ORDERED: ALBUTEROL SO4 2.5/IPRATROPIUM 0.5 INH SOL 3 ML VIAL.NEB. NEB PRN (16:38)
[2021-05-27] MEDS ORDERED: SODIUM CHLORIDE 1,000 ML IV SCH (17:15)
[2021-05-27] MEDS: NICOTINE 14 MG/24 HOURS TOPICAL PATCH TD SCH (18:49)
[2021-05-27] MEDS ORDERED: ALBUTEROL SO4 HFA INHALER IH ONE (18:51)
[2021-05-27] MEDS: INSULIN SLIDING SCALE (NOVOLOG) 1 VIAL SQ SCH (19:19)
[2021-05-27] MEDS: ALBUTEROL SO4 HFA INHALER IH SCH ×2 (20:06→23:29)
[2021-05-27] MEDS: HEPARIN NA (PORCINE) 5,000 UNITS/ML 1ML VIAL SQ SCH (23:32)
[2021-05-27] MEDS: SERTRALINE HCL 50 MG TABLET (FP) PO SCH (23:33)
[2021-05-28] MEDS: ALBUTEROL SO4 HFA INHALER IH SCH ×6 (02:24→22:21)
[2021-05-28 05:26] VITALS: BMI 29.2
[2021-05-28] MEDS: HEPARIN NA (PORCINE) 5,000 UNITS/ML 1ML VIAL SQ SCH ×3 (06:48→22:20)
[2021-05-28] MEDS: INSULIN SLIDING SCALE (NOVOLOG) 1 VIAL SQ SCH ×3 (06:48→17:09)
[2021-05-28] MEDS ORDERED: METOPROLOL TARTRATE 25 MG TABLET (FP) PO ONE (08:36)
[2021-05-28 09:14] LABS: BASO % 0.1 % (0-2.0); EOS % 0.5 % (0-4.5); HEMATOCRIT 34.7 % (32.4-45.2); HEMOGLOBIN 10.5 GM/dL (10.7-15.3); LYMPH % 6.6 % (8-40); MCH 23.3 pg (25.7-33.7); MCHC 30.2 g/dl (32.0-36.0); MEAN CELL VOLUME 77.3 fl (80-96); MEAN PLT VOLUME 8.8 fl (7.5-11.1); MONO % 3.6 % (3.8-10.2); NEUT % 89.2 % (42.8-82.8); PLATELET COUNT 312 10^3/uL (134-434); RBC 4.49 M/mm3 (3.60-5.2); RDW 17.2 % (11.6-15.6); WHITE BLOOD COUNT 11.3 K/mm3 (4.0-10.0)
[2021-05-28] MEDS ORDERED: QUEtiapine FUMARATE 25 MG TABLET ONE (09:20)
[2021-05-28] MEDS ORDERED: PT OWN MED DRAWER 7, Y5N ONE (09:21)
[2021-05-28] MEDS: SERTRALINE HCL 50 MG TABLET (FP) PO SCH ×2 (09:29→22:21)
[2021-05-28] MEDS: QUEtiapine FUMARATE 50 MG TABLET PO SCH (09:30)
[2021-05-28] MEDS: DOCUSATE SODIUM 100 MG CAPSULE (FP) PO SCH (09:30)
[2021-05-28 09:35] LABS: ALBUMIN 2.1 g/dl (3.4-5.0); BLOOD UREA NITROGEN 64.8 mg/dL (7-18)
[2021-05-28 09:39] LABS: BILIRUBIN,TOTAL 0.4 mg/dL (0.2-1); TOT PROT 6.5 g/dl (6.4-8.2)
[2021-05-28] MEDS ORDERED: SODIUM CHLORIDE 0.45% 1,000 ML IV SCH (09:45)
[2021-05-28] MEDS ORDERED: amLODIPine BESYLATE 10 MG TABLET (FP) PO SCH (10:00)
[2021-05-28] MEDS: NICOTINE 14 MG/24 HOURS TOPICAL PATCH TD SCH (11:47)
[2021-05-28] MEDS: MEMANTINE HCL 5 MG TABLET (UD) PO SCH (11:47)
[2021-05-28] MEDS ORDERED: VANCOMYCIN 1 GRAM (PRE-DOCKED) 1,000 MG/250 ML BAG IVPB ONE (13:00)
[2021-05-28] MEDS: SODIUM CHLORIDE 0.45% 1,000 ML IV SCH (13:19)
[2021-05-28 13:49] LABS: BLOOD UREA NITROGEN 49.4 mg/dL (7-18)
[2021-05-28 13:52] LABS: CREATININE 1.3 mg/dL (0.55-1.3)
[2021-05-28 14:03] LABS: CALCIUM 7.2 mg/dL (8.5-10.1)
[2021-05-28] MEDS ORDERED: DEXTROSE 5%-WATER 100 ML IVPB ONE (19:40)
[2021-05-28] MEDS ORDERED: MEROPENEM 500 MG VIAL (RESTRICTED TO ID) IVPB ONE (19:40)
[2021-05-28] MEDS: MEROPENEM 500 MG in DEXTROSE 5%-WATER 100 ML IVPB SCH (19:43)
[2021-05-29] MEDS: ALBUTEROL SO4 HFA INHALER IH SCH ×6 (00:10→20:53)
[2021-05-29] MEDS ORDERED: MEROPENEM 500 MG VIAL (RESTRICTED TO ID) IVPB ONE ×2 (05:43→18:36)
[2021-05-29] MEDS ORDERED: DEXTROSE 5%-WATER 100 ML IVPB ONE ×2 (05:44→18:36)
[2021-05-29] MEDS: HEPARIN NA (PORCINE) 5,000 UNITS/ML 1ML VIAL SQ SCH ×3 (05:51→21:09)
[2021-05-29] MEDS: MEROPENEM 500 MG in DEXTROSE 5%-WATER 100 ML IVPB SCH ×2 (05:51→18:38)
[2021-05-29] MEDS: INSULIN SLIDING SCALE (NOVOLOG) 1 VIAL SQ SCH ×3 (06:01→17:22)
[2021-05-29 06:59] LABS: BASO % 0.2 % (0-2.0); EOS % 3.7 % (0-4.5); HEMATOCRIT 32.2 % (32.4-45.2); HEMOGLOBIN 9.9 GM/dL (10.7-15.3); LYMPH % 8.2 % (8-40); MCH 23.6 pg (25.7-33.7); MCHC 30.8 g/dl (32.0-36.0); MEAN CELL VOLUME 76.6 fl (80-96); MEAN PLT VOLUME 8.5 fl (7.5-11.1); MONO % 4.7 % (3.8-10.2); NEUT % 83.2 % (42.8-82.8); PLATELET COUNT 253 10^3/uL (134-434); RBC 4.19 M/mm3 (3.60-5.2); RDW 17.3 % (11.6-15.6); WHITE BLOOD COUNT 10.2 K/mm3 (4.0-10.0)
[2021-05-29 07:19] LABS: BLOOD UREA NITROGEN 50.1 mg/dL (7-18); MAGNESIUM 1.8 mg/dL (1.8-2.4)
[2021-05-29 07:21] LABS: CREATININE 1.6 mg/dL (0.55-1.3); PHOSPHOROUS 2.6 mg/dL (2.5-4.9)
[2021-05-29 07:24] LABS: BILIRUBIN,TOTAL 0.3 mg/dL (0.2-1); TOT PROT 5.9 g/dl (6.4-8.2)
[2021-05-29 07:33] LABS: CALCIUM 8.7 mg/dL (8.5-10.1)
[2021-05-29] MEDS ORDERED: QUEtiapine FUMARATE 25 MG TABLET ONE (08:53)
[2021-05-29] MEDS: VANCOMYCIN 1 GRAM (PRE-DOCKED) 1,000 MG/250 ML BAG IVPB SCH (09:03)
[2021-05-29] MEDS: FERROUS SO4 325 MG TABLET (FP) PO SCH (09:05)
[2021-05-29] MEDS: THIAMINE HCL 100 MG TABLET (FP) PO SCH (09:05)
[2021-05-29] MEDS: SERTRALINE HCL 50 MG TABLET (FP) PO SCH ×2 (09:05→21:11)
[2021-05-29] MEDS: MEMANTINE HCL 5 MG TABLET (UD) PO SCH (09:06)
[2021-05-29] MEDS: MULTIVIT-MINERALS ORAL LIQUID PO SCH (09:06)
[2021-05-29] MEDS: QUEtiapine FUMARATE 50 MG TABLET PO SCH (09:06)
[2021-05-29] MEDS: DOCUSATE SODIUM 100 MG CAPSULE (FP) PO SCH (09:06)
[2021-05-29] MEDS: SODIUM CHLORIDE 0.45% 1,000 ML IV SCH ×2 (11:03→13:23)
[2021-05-29] MEDS: NICOTINE 14 MG/24 HOURS TOPICAL PATCH TD SCH (12:25)
[2021-05-30] MEDS: ALBUTEROL SO4 HFA INHALER IH SCH ×6 (00:50→21:23)
[2021-05-30] MEDS ORDERED: MEROPENEM 500 MG VIAL (RESTRICTED TO ID) IVPB ONE ×2 (05:47→16:54)
[2021-05-30] MEDS ORDERED: DEXTROSE 5%-WATER 100 ML IVPB ONE ×2 (05:47→16:54)
[2021-05-30] MEDS: MEROPENEM 500 MG in DEXTROSE 5%-WATER 100 ML IVPB SCH ×2 (05:57→18:17)
[2021-05-30] MEDS: HEPARIN NA (PORCINE) 5,000 UNITS/ML 1ML VIAL SQ SCH ×3 (06:00→21:25)
[2021-05-30] MEDS: INSULIN SLIDING SCALE (NOVOLOG) 1 VIAL SQ SCH ×3 (06:00→16:02)
[2021-05-30 08:24] LABS: BASO % 0.2 % (0-2.0); EOS % 5.2 % (0-4.5); HEMATOCRIT 29.7 % (32.4-45.2); HEMOGLOBIN 9.1 GM/dL (10.7-15.3); LYMPH % 11.4 % (8-40); MCH 23.6 pg (25.7-33.7); MCHC 30.6 g/dl (32.0-36.0); MEAN CELL VOLUME 77.1 fl (80-96); MEAN PLT VOLUME 9.3 fl (7.5-11.1); MONO % 4.7 % (3.8-10.2); NEUT % 78.5 % (42.8-82.8); PLATELET COUNT 231 10^3/uL (134-434); RBC 3.85 M/mm3 (3.60-5.2); RDW 16.8 % (11.6-15.6); WHITE BLOOD COUNT 9.2 K/mm3 (4.0-10.0)
[2021-05-30 09:05] LABS: BLOOD UREA NITROGEN 35.2 mg/dL (7-18); CALCIUM 8.6 mg/dL (8.5-10.1)
[2021-05-30 09:07] LABS: MAGNESIUM 1.6 mg/dL (1.8-2.4)
[2021-05-30] MEDS ORDERED: PT OWN MED DRAWER 7, Y5N ONE (09:07)
[2021-05-30 09:09] LABS: CREATININE 1.5 mg/dL (0.55-1.3); PHOSPHOROUS 2.8 mg/dL (2.5-4.9)
[2021-05-30 09:20] LABS: ANISOCYTOSIS 0; MACROCYTOSIS 0; PLATELET ESTIMATE NORMAL
[2021-05-30] MEDS: VANCOMYCIN 1 GRAM (PRE-DOCKED) 1,000 MG/250 ML BAG IVPB SCH (12:01)
[2021-05-30] MEDS: SERTRALINE HCL 50 MG TABLET (FP) PO SCH ×2 (12:06→21:25)
[2021-05-30] MEDS: DOCUSATE SODIUM 100 MG CAPSULE (FP) PO SCH (12:06)
[2021-05-30] MEDS: THIAMINE HCL 100 MG TABLET (FP) PO SCH (12:06)
[2021-05-30] MEDS: FERROUS SO4 325 MG TABLET (FP) PO SCH (12:06)
[2021-05-30] MEDS: MULTIVIT-MINERALS ORAL LIQUID PO SCH (12:15)
[2021-05-30] MEDS: QUEtiapine FUMARATE 50 MG TABLET PO SCH (12:16)
[2021-05-30] MEDS: NICOTINE 14 MG/24 HOURS TOPICAL PATCH TD SCH (12:16)
[2021-05-30] MEDS: MEMANTINE HCL 5 MG TABLET (UD) PO SCH (12:16)
[2021-05-30] MEDS ORDERED: LIDOCAINE HCL 1%, 10 MG/ML (20ML VIAL) ONE (14:08)
[2021-05-30] MEDS ORDERED: BUPIVACAINE HCL/PF 0.5% (5MG/ML) 10 ML VIAL ONE (14:08)
[2021-05-30] MEDS ORDERED: PROPOFOL 20 ML ONE (16:47)
[2021-05-30] MEDS ORDERED: DEXAMETHASONE SOD PHOSPHATE 4 MG/1 ML VIAL ONE (16:59)
[2021-05-30] MEDS ORDERED: BACITRACIN 50,000 UNITS VIAL NR ONE (17:11)
[2021-05-30] MEDS ORDERED: POLYETHYLENE GLYCOL (HEALTHYLAX) 3350 17 GM PACKET PO PRN (17:58)
[2021-05-30] MEDS ORDERED: ALBUTEROL SO4 2.5/IPRATROPIUM 0.5 INH SOL 3 ML VIAL.NEB. NEB PRN (17:58)
[2021-05-30] MEDS ORDERED: ACETAMINOPHEN 325 MG TABLET (FP) PO PRN (17:58)
[2021-05-30] MEDS ORDERED: ONDANSETRON 4 MG/2 ML VIAL IVPUSH PRN (18:39)
[2021-05-30] MEDS ORDERED: LACTATED RINGERS SOLUTION 1,000 ML IV SCH (18:45)
[2021-05-30] MEDS ORDERED: PATIENT'S OWN MEDICATION (NON-FORMULARY) (Fluticasone/Salmeterol [Advair Hfa 45-21 Mcg Inh PO SCH (22:00)
[2021-05-31] MEDS: ALBUTEROL SO4 HFA INHALER IH SCH ×6 (00:33→20:45)
[2021-05-31] MEDS ORDERED: MEROPENEM 500 MG VIAL (RESTRICTED TO ID) IVPB ONE ×2 (04:24→17:13)
[2021-05-31] MEDS ORDERED: DEXTROSE 5%-WATER 100 ML IVPB ONE ×2 (04:25→17:13)
[2021-05-31] MEDS: MEROPENEM 500 MG in DEXTROSE 5%-WATER 100 ML IVPB SCH ×2 (05:58→17:39)
[2021-05-31] MEDS: HEPARIN NA (PORCINE) 5,000 UNITS/ML 1ML VIAL SQ SCH ×3 (05:58→21:28)
[2021-05-31] MEDS: INSULIN SLIDING SCALE (NOVOLOG) 1 VIAL SQ SCH ×3 (06:42→17:19)
[2021-05-31 07:39] LABS: BASO % 0.1 % (0-2.0); EOS % 0.1 % (0-4.5); HEMATOCRIT 26.1 % (32.4-45.2); HEMOGLOBIN 8.3 GM/dL (10.7-15.3); LYMPH % 5.6 % (8-40); MCH 23.8 pg (25.7-33.7); MCHC 31.6 g/dl (32.0-36.0); MEAN CELL VOLUME 75.1 fl (80-96); MEAN PLT VOLUME 8.7 fl (7.5-11.1); MONO % 2.6 % (3.8-10.2); NEUT % 91.6 % (42.8-82.8); PLATELET COUNT 180 10^3/uL (134-434); RBC 3.47 M/mm3 (3.60-5.2); RDW 16.5 % (11.6-15.6); WHITE BLOOD COUNT 8.1 K/mm3 (4.0-10.0)
[2021-05-31] MEDS ORDERED: MAGNESIUM 2GM/50ML STERILE WATER IVPB IVPB ONE (07:45)
[2021-05-31 08:07] LABS: ALBUMIN 1.8 g/dl (3.4-5.0); BLOOD UREA NITROGEN 33.7 mg/dL (7-18); CALCIUM 8.2 mg/dL (8.5-10.1); MAGNESIUM 1.7 mg/dL (1.8-2.4)
[2021-05-31 08:10] LABS: CREATININE 1.3 mg/dL (0.55-1.3)
[2021-05-31 08:12] LABS: BILIRUBIN,TOTAL 0.3 mg/dL (0.2-1); TOT PROT 5.2 g/dl (6.4-8.2)
[2021-05-31 08:52] LABS: ANISOCYTOSIS 1+; MACROCYTOSIS 0; PLATELET ESTIMATE NORMAL
[2021-05-31] MEDS: NICOTINE 14 MG/24 HOURS TOPICAL PATCH TD SCH (09:43)
[2021-05-31] MEDS: DOCUSATE SODIUM 100 MG CAPSULE (FP) PO SCH (09:44)
[2021-05-31] MEDS: SERTRALINE HCL 50 MG TABLET (FP) PO SCH ×2 (09:44→21:29)
[2021-05-31] MEDS: FERROUS SO4 325 MG TABLET (FP) PO SCH (09:44)
[2021-05-31] MEDS: THIAMINE HCL 100 MG TABLET (FP) PO SCH (09:44)
[2021-05-31] MEDS: BUDESONIDE/FORMETEROL FUMARATE 80/4.5 mcg INHALER IH SCH ×2 (09:45→21:28)
[2021-05-31] MEDS: VANCOMYCIN 1 GRAM (PRE-DOCKED) 1,000 MG/250 ML BAG IVPB SCH (09:45)
[2021-05-31] MEDS: MULTIVIT-MINERALS ORAL LIQUID PO SCH (09:46)
[2021-05-31] MEDS: QUEtiapine FUMARATE 50 MG TABLET PO SCH (09:48)
[2021-05-31] MEDS: MEMANTINE HCL 5 MG TABLET (UD) PO SCH (10:59)
[2021-05-31] MEDS ORDERED: INSULIN (NOVOLOG) ASPART 100 UNITS/ML 10ML VIAL ONE (12:03)
[2021-05-31] MEDS: SODIUM CHLORIDE 0.45% 1,000 ML IV SCH (14:15)
[2021-05-31] MEDS: PATIENT'S OWN MEDICATION (NON-FORMULARY) (Fluticasone/Salmeterol [Advair Hfa 45-21 Mcg Inh PO SCH ×2 (20:24→20:25)
[2021-06-01] MEDS: ALBUTEROL SO4 HFA INHALER IH SCH ×6 (01:11→20:03)
[2021-06-01] MEDS: SODIUM CHLORIDE 0.45% 1,000 ML IV SCH ×2 (03:15→12:09)
[2021-06-01] MEDS ORDERED: MEROPENEM 500 MG VIAL (RESTRICTED TO ID) IVPB ONE ×2 (05:02→17:23)
[2021-06-01] MEDS ORDERED: DEXTROSE 5%-WATER 100 ML IVPB ONE ×2 (05:02→17:24)
[2021-06-01] MEDS: MEROPENEM 500 MG in DEXTROSE 5%-WATER 100 ML IVPB SCH ×2 (05:43→17:54)
[2021-06-01] MEDS: HEPARIN NA (PORCINE) 5,000 UNITS/ML 1ML VIAL SQ SCH ×3 (05:43→21:16)
[2021-06-01] MEDS: INSULIN SLIDING SCALE (NOVOLOG) 1 VIAL SQ SCH ×3 (06:05→17:30)
[2021-06-01 07:58] LABS: BASO % 0.3 % (0-2.0); HEMATOCRIT 27.3 % (32.4-45.2); HEMOGLOBIN 8.7 GM/dL (10.7-15.3); LYMPH % 9.1 % (8-40); MCH 23.5 pg (25.7-33.7); MCHC 31.8 g/dl (32.0-36.0); MEAN PLT VOLUME 8.9 fl (7.5-11.1); MONO % 3.5 % (3.8-10.2); NEUT % 83.1 % (42.8-82.8); PLATELET COUNT 221 10^3/uL (134-434); RBC 3.69 M/mm3 (3.60-5.2); RDW 16.5 % (11.6-15.6); WHITE BLOOD COUNT 8.5 K/mm3 (4.0-10.0)
[2021-06-01 08:28] LABS: ALBUMIN 1.9 g/dl (3.4-5.0)
[2021-06-01 08:32] LABS: CALCIUM 8.3 mg/dL (8.5-10.1)
[2021-06-01 08:33] LABS: BLOOD UREA NITROGEN 25.8 mg/dL (7-18); MAGNESIUM 2.1 mg/dL (1.8-2.4)
[2021-06-01 08:36] LABS: CREATININE 1.1 mg/dL (0.55-1.3); PHOSPHOROUS 2.2 mg/dL (2.5-4.9)
[2021-06-01 08:37] LABS: BILIRUBIN,TOTAL 0.2 mg/dL (0.2-1); TOT PROT 5.5 g/dl (6.4-8.2)
[2021-06-01] MEDS: NICOTINE 14 MG/24 HOURS TOPICAL PATCH TD SCH (10:34)
[2021-06-01] MEDS: DOCUSATE SODIUM 100 MG CAPSULE (FP) PO SCH (10:34)
[2021-06-01] MEDS: QUEtiapine FUMARATE 50 MG TABLET PO SCH (10:34)
[2021-06-01] MEDS: FERROUS SO4 325 MG TABLET (FP) PO SCH (10:34)
[2021-06-01] MEDS: SERTRALINE HCL 50 MG TABLET (FP) PO SCH ×2 (10:34→21:16)
[2021-06-01] MEDS: THIAMINE HCL 100 MG TABLET (FP) PO SCH (10:34)
[2021-06-01] MEDS: LOSARTAN POTASSIUM 50 MG TABLET PO SCH (10:34)
[2021-06-01] MEDS: MEMANTINE HCL 5 MG TABLET (UD) PO SCH (10:34)
[2021-06-01] MEDS: BUDESONIDE/FORMETEROL FUMARATE 80/4.5 mcg INHALER IH SCH ×2 (10:35→21:16)
[2021-06-01] MEDS: VANCOMYCIN 1 GRAM (PRE-DOCKED) 1,000 MG/250 ML BAG IVPB SCH (10:36)
[2021-06-01] MEDS: MULTIVIT-MINERALS ORAL LIQUID PO SCH (11:03)
[2021-06-01] MEDS ORDERED: NYSTATIN 500,000 UNITS/5 ML SUSPENSION PO ONE (11:15)
[2021-06-02] MEDS: ALBUTEROL SO4 HFA INHALER IH SCH ×5 (00:30→16:56)
[2021-06-02] MEDS: SODIUM CHLORIDE 0.45% 1,000 ML IV SCH ×2 (02:20→12:05)
[2021-06-02] MEDS ORDERED: MEROPENEM 500 MG VIAL (RESTRICTED TO ID) IVPB ONE ×2 (05:09→09:08)
[2021-06-02] MEDS ORDERED: DEXTROSE 5%-WATER 100 ML IVPB ONE (05:09)
[2021-06-02] MEDS: HEPARIN NA (PORCINE) 5,000 UNITS/ML 1ML VIAL SQ SCH ×3 (06:01→21:57)
[2021-06-02] MEDS: MEROPENEM 500 MG in DEXTROSE 5%-WATER 100 ML IVPB SCH ×2 (06:01→17:33)
[2021-06-02] MEDS: INSULIN SLIDING SCALE (NOVOLOG) 1 VIAL SQ SCH ×3 (06:19→16:57)
[2021-06-02 07:45] LABS: BASO % 0.5 % (0-2.0); EOS % 4.4 % (0-4.5); HEMATOCRIT 30.2 % (32.4-45.2); HEMOGLOBIN 9.6 GM/dL (10.7-15.3); LYMPH % 9.7 % (8-40); MCH 23.8 pg (25.7-33.7); MCHC 31.9 g/dl (32.0-36.0); MEAN CELL VOLUME 74.8 fl (80-96); MEAN PLT VOLUME 9.5 fl (7.5-11.1); MONO % 5.7 % (3.8-10.2); NEUT % 79.7 % (42.8-82.8); PLATELET COUNT 254 10^3/uL (134-434); RBC 4.04 M/mm3 (3.60-5.2); RDW 16.3 % (11.6-15.6); WHITE BLOOD COUNT 8.6 K/mm3 (4.0-10.0)
[2021-06-02 07:55] LABS: ALBUMIN 2.1 g/dl (3.4-5.0)
[2021-06-02 07:56] LABS: BLOOD UREA NITROGEN 19.8 mg/dL (7-18); CALCIUM 8.5 mg/dL (8.5-10.1)
[2021-06-02 07:57] LABS: BILIRUBIN,TOTAL 0.2 mg/dL (0.2-1); TOT PROT 6.1 g/dl (6.4-8.2)
[2021-06-02 07:58] LABS: CREATININE 1.1 mg/dL (0.55-1.3)
[2021-06-02 07:59] LABS: PHOSPHOROUS 2.3 mg/dL (2.5-4.9)
[2021-06-02] MEDS ORDERED: NAPH,MB-DB/K PH,MBDB POWDER PACKET PO ONE (08:04)
[2021-06-02 09:02] LABS: PLATELET ESTIMATE ADEQUATE
[2021-06-02] MEDS: NICOTINE 14 MG/24 HOURS TOPICAL PATCH TD SCH (09:21)
[2021-06-02] MEDS: FERROUS SO4 325 MG TABLET (FP) PO SCH (09:21)
[2021-06-02] MEDS: MEMANTINE HCL 5 MG TABLET (UD) PO SCH (09:21)
[2021-06-02] MEDS: LOSARTAN POTASSIUM 50 MG TABLET PO SCH (09:21)
[2021-06-02] MEDS: QUEtiapine FUMARATE 50 MG TABLET PO SCH (09:21)
[2021-06-02] MEDS: THIAMINE HCL 100 MG TABLET (FP) PO SCH (09:21)
[2021-06-02] MEDS: SERTRALINE HCL 50 MG TABLET (FP) PO SCH ×2 (09:21→21:58)
[2021-06-02] MEDS: DOCUSATE SODIUM 100 MG CAPSULE (FP) PO SCH (09:21)
[2021-06-02] MEDS: BUDESONIDE/FORMETEROL FUMARATE 80/4.5 mcg INHALER IH SCH ×2 (09:22→21:58)
[2021-06-02] MEDS: MULTIVIT-MINERALS ORAL LIQUID PO SCH (09:22)
[2021-06-02] MEDS: VANCOMYCIN 1 GRAM (PRE-DOCKED) 1,000 MG/250 ML BAG IVPB SCH (09:23)
[2021-06-02] MEDS ORDERED: VANCOMYCIN 1,000 MG VIAL (RESTRICTED TO ID ONLY) ONE (12:56)
[2021-06-02] MEDS ORDERED: PROPOFOL 20 ML ONE (12:57)
[2021-06-02] MEDS ORDERED: LIDOCAINE HCL/PF 2% SDV 5ML VIAL ONE (12:58)
[2021-06-02] MEDS ORDERED: BACITRACIN 50,000 UNITS VIAL IM ONE (13:20)
[2021-06-02] MEDS ORDERED: VANCOMYCIN 1,000 MG VIAL (RESTRICTED TO ID ONLY) IVPB ONE (13:30)
[2021-06-02] MEDS ORDERED: LACTATED RINGERS SOLUTION 1,000 ML IV SCH ×2 (14:15→14:26)
[2021-06-02] MEDS ORDERED: ALBUTEROL SO4 2.5/IPRATROPIUM 0.5 INH SOL 3 ML VIAL.NEB. NEB PRN (14:26)
[2021-06-02] MEDS ORDERED: POLYETHYLENE GLYCOL (HEALTHYLAX) 3350 17 GM PACKET PO PRN (14:26)
[2021-06-02] MEDS ORDERED: SODIUM CHLORIDE 0.45% 1,000 ML IV SCH (14:26)
[2021-06-02] MEDS ORDERED: LOSARTAN POTASSIUM 50 MG TABLET PO ONE (17:55)
[2021-06-02] MEDS: ACETAMINOPHEN 325 MG TABLET (FP) PO PRN (22:00)
[2021-06-03] MEDS ORDERED: MEROPENEM 500 MG VIAL (RESTRICTED TO ID) IVPB ONE (06:37)
[2021-06-03] MEDS ORDERED: DEXTROSE 5%-WATER 100 ML IVPB ONE (06:37)
[2021-06-03] MEDS: ALBUTEROL SO4 HFA INHALER IH SCH ×6 (07:04→23:10)
[2021-06-03] MEDS: MEROPENEM 500 MG in DEXTROSE 5%-WATER 100 ML IVPB SCH (07:05)
[2021-06-03] MEDS: INSULIN SLIDING SCALE (NOVOLOG) 1 VIAL SQ SCH ×3 (07:06→17:11)
[2021-06-03] MEDS: HEPARIN NA (PORCINE) 5,000 UNITS/ML 1ML VIAL SQ SCH ×3 (07:06→21:07)
[2021-06-03 07:39] LABS: BASO % 0.4 % (0-2.0); EOS % 2.9 % (0-4.5); HEMATOCRIT 25.1 % (32.4-45.2); HEMOGLOBIN 8.1 GM/dL (10.7-15.3); LYMPH % 10.8 % (8-40); MCH 23.8 pg (25.7-33.7); MCHC 32.2 g/dl (32.0-36.0); MEAN CELL VOLUME 73.9 fl (80-96); MEAN PLT VOLUME 8.9 fl (7.5-11.1); NEUT % 80.9 % (42.8-82.8); PLATELET COUNT 267 10^3/uL (134-434); RBC 3.39 M/mm3 (3.60-5.2); RDW 16.7 % (11.6-15.6)
[2021-06-03 07:54] LABS: CALCIUM 8.3 mg/dL (8.5-10.1)
[2021-06-03 07:55] LABS: MAGNESIUM 1.8 mg/dL (1.8-2.4)
[2021-06-03 07:57] LABS: ALBUMIN 1.8 g/dl (3.4-5.0); BLOOD UREA NITROGEN 13.4 mg/dL (7-18)
[2021-06-03 07:59] LABS: BILIRUBIN,TOTAL 0.2 mg/dL (0.2-1); TOT PROT 5.1 g/dl (6.4-8.2)
[2021-06-03 08:00] LABS: PHOSPHOROUS 2.5 mg/dL (2.5-4.9)
[2021-06-03] MEDS: QUEtiapine FUMARATE 50 MG TABLET PO SCH (09:30)
[2021-06-03] MEDS: LOSARTAN POTASSIUM 50 MG TABLET PO SCH (09:30)
[2021-06-03] MEDS: FERROUS SO4 325 MG TABLET (FP) PO SCH (09:30)
[2021-06-03] MEDS: DOCUSATE SODIUM 100 MG CAPSULE (FP) PO SCH ×2 (09:30→21:07)
[2021-06-03] MEDS: MEMANTINE HCL 5 MG TABLET (UD) PO SCH (09:30)
[2021-06-03] MEDS: THIAMINE HCL 100 MG TABLET (FP) PO SCH (09:30)
[2021-06-03] MEDS: SERTRALINE HCL 50 MG TABLET (FP) PO SCH ×2 (09:31→21:07)
[2021-06-03] MEDS: BUDESONIDE/FORMETEROL FUMARATE 80/4.5 mcg INHALER IH SCH ×2 (09:31→21:07)
[2021-06-03] MEDS: MULTIVIT-MINERALS ORAL LIQUID PO SCH (09:31)
[2021-06-03] MEDS: NICOTINE 14 MG/24 HOURS TOPICAL PATCH TD SCH (09:37)
[2021-06-03] MEDS ORDERED: VANCOMYCIN 1 GRAM (PRE-DOCKED) 1,000 MG/250 ML BAG IVPB SCH (10:00)
[2021-06-03] MEDS ORDERED: LOSARTAN POTASSIUM 50 MG TABLET PO SCH (10:00)
[2021-06-03] MEDS ORDERED: MAGNESIUM OXIDE 400 MG TABLET (FP) PO ONE (10:56)
[2021-06-03 11:44] LABS: ANISOCYTOSIS 1+; MACROCYTOSIS 0; OVALOCYTE 1+; PLATELET ESTIMATE NORMAL; TEAR DROP CELLS 1+
[2021-06-03] MEDS ORDERED: MAGNESIUM 1GM/D5W 100ML - 100 ML IVPB IVPB ONE (13:00)
[2021-06-03] MEDS: AMINO ACIDS/PROTEIN HYDROLYS 30 ML LIQUID.PKT PO SCH (17:11)
[2021-06-03] MEDS: CEFTRIAXONE 2 GM in DEXTROSE 5%-WATER 2 GM/100 ML BAG IVPB SCH (17:31)
[2021-06-03] MEDS: ACETAMINOPHEN 325 MG TABLET (FP) PO PRN (21:08)
[2021-06-04] MEDS: ALBUTEROL SO4 HFA INHALER IH SCH ×5 (03:20→20:30)
[2021-06-04] MEDS: HEPARIN NA (PORCINE) 5,000 UNITS/ML 1ML VIAL SQ SCH ×2 (06:31→13:16)
[2021-06-04] MEDS: INSULIN SLIDING SCALE (NOVOLOG) 1 VIAL SQ SCH ×3 (06:32→17:25)
[2021-06-04 08:16] LABS: BASO % 0.8 % (0-2.0); EOS % 2.7 % (0-4.5); HEMATOCRIT 23.3 % (32.4-45.2); HEMOGLOBIN 7.7 GM/dL (10.7-15.3); LYMPH % 10.8 % (8-40); MCH 24.1 pg (25.7-33.7); MCHC 32.8 g/dl (32.0-36.0); MEAN CELL VOLUME 73.3 fl (80-96); MEAN PLT VOLUME 8.7 fl (7.5-11.1); MONO % 5.2 % (3.8-10.2); NEUT % 80.5 % (42.8-82.8); PLATELET COUNT 287 10^3/uL (134-434); RBC 3.18 M/mm3 (3.60-5.2); RDW 16.4 % (11.6-15.6); WHITE BLOOD COUNT 8.1 K/mm3 (4.0-10.0)
[2021-06-04] MEDS: AMINO ACIDS/PROTEIN HYDROLYS 30 ML LIQUID.PKT PO SCH ×2 (08:34→17:26)
[2021-06-04 09:08] LABS: ALBUMIN 1.8 g/dl (3.4-5.0); BLOOD UREA NITROGEN 11.6 mg/dL (7-18); CALCIUM 8.4 mg/dL (8.5-10.1); MAGNESIUM 1.9 mg/dL (1.8-2.4)
[2021-06-04] MEDS ORDERED: DEXTROSE 5%-WATER 100 ML IVPB ONE (09:11)
[2021-06-04 09:12] LABS: CREATININE 0.9 mg/dL (0.55-1.3)
[2021-06-04 09:13] LABS: BILIRUBIN,TOTAL 0.2 mg/dL (0.2-1); TOT PROT 5.4 g/dl (6.4-8.2)
[2021-06-04] MEDS: QUEtiapine FUMARATE 50 MG TABLET PO SCH (10:30)
[2021-06-04] MEDS: THIAMINE HCL 100 MG TABLET (FP) PO SCH (10:31)
[2021-06-04] MEDS: DOCUSATE SODIUM 100 MG CAPSULE (FP) PO SCH ×2 (10:32→21:09)
[2021-06-04] MEDS: LOSARTAN POTASSIUM 50 MG TABLET PO SCH (10:32)
[2021-06-04] MEDS: SERTRALINE HCL 50 MG TABLET (FP) PO SCH ×2 (10:32→21:08)
[2021-06-04] MEDS: FERROUS SO4 325 MG TABLET (FP) PO SCH (10:33)
[2021-06-04] MEDS: MEMANTINE HCL 5 MG TABLET (UD) PO SCH (10:33)
[2021-06-04] MEDS: MULTIVIT-MINERALS ORAL LIQUID PO SCH (10:33)
[2021-06-04] MEDS: CEFTRIAXONE 2 GM in DEXTROSE 5%-WATER 2 GM/100 ML BAG IVPB SCH (10:34)
[2021-06-04] MEDS: NICOTINE 14 MG/24 HOURS TOPICAL PATCH TD SCH (10:34)
[2021-06-04] MEDS: BUDESONIDE/FORMETEROL FUMARATE 80/4.5 mcg INHALER IH SCH ×2 (10:34→21:16)
[2021-06-04] MEDS ORDERED: POTASSIUM PHOSPHATE 30 MM in SODIUM CHLORIDE 500 ML IVPB ONE (18:00)
[2021-06-05] MEDS: ALBUTEROL SO4 HFA INHALER IH SCH ×5 (00:38→20:09)
[2021-06-05] MEDS: INSULIN SLIDING SCALE (NOVOLOG) 1 VIAL SQ SCH ×3 (06:05→17:03)
[2021-06-05] MEDS ORDERED: DEXTROSE 5%-WATER 100 ML IVPB ONE (09:23)
[2021-06-05] MEDS: FERROUS SO4 325 MG TABLET (FP) PO SCH (09:53)
[2021-06-05] MEDS: SERTRALINE HCL 50 MG TABLET (FP) PO SCH ×2 (09:53→21:12)
[2021-06-05] MEDS: THIAMINE HCL 100 MG TABLET (FP) PO SCH (09:53)
[2021-06-05] MEDS: LOSARTAN POTASSIUM 50 MG TABLET PO SCH (09:53)
[2021-06-05] MEDS: MEMANTINE HCL 5 MG TABLET (UD) PO SCH (09:53)
[2021-06-05] MEDS: QUEtiapine FUMARATE 50 MG TABLET PO SCH (09:53)
[2021-06-05] MEDS: NICOTINE 14 MG/24 HOURS TOPICAL PATCH TD SCH (09:54)
[2021-06-05] MEDS: ENOXAPARIN NA (PORCINE) 40 MG/0.4 ML DISP.SYRIN SQ SCH (09:54)
[2021-06-05] MEDS: AMINO ACIDS/PROTEIN HYDROLYS 30 ML LIQUID.PKT PO SCH ×2 (09:54→17:43)
[2021-06-05] MEDS: MULTIVIT-MINERALS ORAL LIQUID PO SCH (09:55)
[2021-06-05] MEDS: ASPIRIN COATED 81 MG TABLET.EC PO SCH (09:58)
[2021-06-05] MEDS: CEFTRIAXONE 2 GM in DEXTROSE 5%-WATER 2 GM/100 ML BAG IVPB SCH (09:59)
[2021-06-05] MEDS: BUDESONIDE/FORMETEROL FUMARATE 80/4.5 mcg INHALER IH SCH ×2 (10:02→22:40)
[2021-06-05 17:24] LABS: HEMATOCRIT 26.5 % (32.4-45.2); HEMOGLOBIN 8.6 GM/dL (10.7-15.3); MCH 23.7 pg (25.7-33.7); MCHC 32.4 g/dl (32.0-36.0); MEAN CELL VOLUME 73.2 fl (80-96); MEAN PLT VOLUME 8.3 fl (7.5-11.1); PLATELET COUNT 343 10^3/uL (134-434); RBC 3.62 M/mm3 (3.60-5.2); RDW 16.8 % (11.6-15.6); WHITE BLOOD COUNT 9.7 K/mm3 (4.0-10.0)
[2021-06-05 17:27] LABS: ADD RBC MORPHOLOGY YES
[2021-06-05 17:30] LABS: ALBUMIN 1.9 g/dl (3.4-5.0); BLOOD UREA NITROGEN 14.6 mg/dL (7-18); CALCIUM 8.3 mg/dL (8.5-10.1)
[2021-06-05 17:33] LABS: CREATININE 1.1 mg/dL (0.55-1.3)
[2021-06-05 17:34] LABS: PHOSPHOROUS 3.4 mg/dL (2.5-4.9)
[2021-06-05 17:35] LABS: BILIRUBIN,TOTAL 0.1 mg/dL (0.2-1); TOT PROT 5.5 g/dl (6.4-8.2)
[2021-06-05 18:16] LABS: ANISOCYTOSIS 2+; MACROCYTOSIS 1+; PLATELET ESTIMATE NORMAL
[2021-06-05] MEDS: DOCUSATE SODIUM 100 MG CAPSULE (FP) PO SCH (21:13)
[2021-06-05] MEDS ORDERED: ATORVASTATIN CA 20 MG TABLET (FP) PO SCH (22:00)
[2021-06-06] MEDS: ALBUTEROL SO4 HFA INHALER IH SCH ×4 (01:13→11:42)
[2021-06-06] MEDS: INSULIN SLIDING SCALE (NOVOLOG) 1 VIAL SQ SCH ×2 (06:10→11:41)
[2021-06-06 07:35] LABS: HEMATOCRIT 24.4 % (32.4-45.2); HEMOGLOBIN 7.9 GM/dL (10.7-15.3); MCHC 32.5 g/dl (32.0-36.0); MEAN PLT VOLUME 8.5 fl (7.5-11.1); PLATELET COUNT 311 10^3/uL (134-434); RDW 16.7 % (11.6-15.6); WHITE BLOOD COUNT 8.3 K/mm3 (4.0-10.0)
[2021-06-06 07:55] LABS: ALBUMIN 1.9 g/dl (3.4-5.0); BLOOD UREA NITROGEN 11.9 mg/dL (7-18)
[2021-06-06 07:57] LABS: CALCIUM 8.4 mg/dL (8.5-10.1)
[2021-06-06 07:58] LABS: CREATININE 1.1 mg/dL (0.55-1.3); MAGNESIUM 1.9 mg/dL (1.8-2.4); PHOSPHOROUS 2.8 mg/dL (2.5-4.9)
[2021-06-06 07:59] LABS: BILIRUBIN,TOTAL 0.3 mg/dL (0.2-1); TOT PROT 5.5 g/dl (6.4-8.2)
[2021-06-06 09:13] LABS: ANISOCYTOSIS 0; HELMET CELLS 0; HOWELL-JOLLY BODIES 0; MACROCYTOSIS 0; OVALOCYTE 0; PLATELET ESTIMATE NORMAL; ROULEAU 0; SICKELED CELLS 0; TARGET CELLS 0; TEAR DROP CELLS 0; TOXIC GRANULATION 0
[2021-06-06] MEDS: CEFTRIAXONE 2 GM in DEXTROSE 5%-WATER 2 GM/100 ML BAG IVPB SCH (09:41)
[2021-06-06] MEDS: LOSARTAN POTASSIUM 50 MG TABLET PO SCH (09:42)
[2021-06-06] MEDS: ENOXAPARIN NA (PORCINE) 40 MG/0.4 ML DISP.SYRIN SQ SCH (09:42)
[2021-06-06] MEDS: NICOTINE 14 MG/24 HOURS TOPICAL PATCH TD SCH (09:42)
[2021-06-06] MEDS: QUEtiapine FUMARATE 50 MG TABLET PO SCH (09:43)
[2021-06-06] MEDS: THIAMINE HCL 100 MG TABLET (FP) PO SCH (09:43)
[2021-06-06] MEDS: MEMANTINE HCL 5 MG TABLET (UD) PO SCH (09:43)
[2021-06-06] MEDS: AMINO ACIDS/PROTEIN HYDROLYS 30 ML LIQUID.PKT PO SCH (09:43)
[2021-06-06] MEDS: ASPIRIN COATED 81 MG TABLET.EC PO SCH (09:43)
[2021-06-06] MEDS: FERROUS SO4 325 MG TABLET (FP) PO SCH (09:43)
[2021-06-06] MEDS ORDERED: PT OWN MED DRAWER 7, Y5N ONE (09:46)
[2021-06-06] MEDS: MULTIVIT-MINERALS ORAL LIQUID PO SCH (09:49)
[2021-06-06] MEDS: SERTRALINE HCL 50 MG TABLET (FP) PO SCH (09:50)
[2021-06-06] MEDS: BUDESONIDE/FORMETEROL FUMARATE 80/4.5 mcg INHALER IH SCH (09:50)
[2021-06-06 14:26] VITALS: BP 146/67; PULSE 73; TEMP 97.9
[2021-06-06] MEDS ORDERED: CEFAZOLIN 2 GM in DEXTROSE 5%-WATER - 50 ML IVPB SCH (18:00)
== END 2021-06-06 16:57 | DRG 862 ==
LOC: JER 10:56 → JERBED 16:26 → J4S 21:26 → J4W 05-29 16:32
PROVIDERS: ADMIT Internal Medicine; ATTEND Internal Medicine
PROC: 3E10X8Z Irrigation of Skin and Mucous Membranes using Irrigating Substance (ICD-10-PCS; 2021-05-30)
PROC: 2W4RX5Z Packing of Left Lower Leg using Packing Material (ICD-10-PCS; 2021-05-30)
PROC: 3E10X8Z Irrigation of Skin and Mucous Membranes using Irrigating Substance (ICD-10-PCS; 2021-06-02)
PROC: 0Y9L0ZZ Drainage of Left Ankle Region, Open Approach (ICD-10-PCS; principal; 2021-06-02 11:30)
DX: T81.41XA Infection following a procedure, superficial incisional surgical site, initial encounter (principal); G93.41 Metabolic encephalopathy; A41.02 Sepsis due to Methicillin resistant Staphylococcus aureus; N17.9 Acute kidney failure, unspecified; E87.0 Hyperosmolality and hypernatremia; N39.0 Urinary tract infection, site not specified; I47.1 Supraventricular tachycardia; G30.9 Alzheimer's disease, unspecified; T81.44XA Sepsis following a procedure, initial encounter; F02.80 Dementia in other diseases classified elsewhere, unspecified severity, without behavioral disturbance, psychotic disturbance, mood disturbance, and anxiety; E78.5 Hyperlipidemia, unspecified; I10 Essential (primary) hypertension; R29.6 Repeated falls; B96.1 Klebsiella pneumoniae [K. pneumoniae] as the cause of diseases classified elsewhere; E86.0 Dehydration; E11.65 Type 2 diabetes mellitus with hyperglycemia; J44.9 Chronic obstructive pulmonary disease, unspecified; E86.1 Hypovolemia; F17.210 Nicotine dependence, cigarettes, uncomplicated; I12.9 Hypertensive chronic kidney disease with stage 1 through stage 4 chronic kidney disease, or unspecified chronic kidney disease; E11.22 Type 2 diabetes mellitus with diabetic chronic kidney disease; N18.30 Chronic kidney disease, stage 3 unspecified; Z85.3 Personal history of malignant neoplasm of breast; Z88.0 Allergy status to penicillin; B95.62 Methicillin resistant Staphylococcus aureus infection as the cause of diseases classified elsewhere; Y83.8 Other surgical procedures as the cause of abnormal reaction of the patient, or of later complication, without mention of misadventure at the time of the procedure
CPT/HCPCS: 36415; 70450-TC; 71045-TC-FY; 72125-TC; 73590-TC-LT-FY; 73630-TC-LT; 80048; 80053; 81003; 82962; 83605; 83735; 84100; 84484; 85025; 85610; 85730; 87040; 87070; 87086; 87186; 87205; 87804; 93005; 93010; 93306-TC; 94760; 97162-GP; 99285-25; C9803; J0131; J1644; U0003; U0005

== ENCOUNTER 2021-08-25 09:29 | Inpatient (IN) | payer OTHER ==
[2021-08-25 09:54] VITALS: BMI 20.2
[2021-08-25 11:14] LABS: BASO % 0.6 % (0-2.0); EOS % 1.6 % (0-4.5); HEMATOCRIT 29.5 % (32.4-45.2); HEMOGLOBIN 9.4 GM/dL (10.7-15.3); LYMPH % 11.9 % (8-40); MCHC 31.8 g/dl (32.0-36.0); MEAN CELL VOLUME 84.9 fl (80-96); MEAN PLT VOLUME 7.9 fl (7.5-11.1); MONO % 3.7 % (3.8-10.2); NEUT % 82.2 % (42.8-82.8); PLATELET COUNT 359 10^3/uL (134-434); RBC 3.48 M/mm3 (3.60-5.2); RDW 20.4 % (11.6-15.6); WHITE BLOOD COUNT 12.7 K/mm3 (4.0-10.0)
[2021-08-25 11:17] LABS: EPI CELLS >36 /uL (0-25.1); HYALINE CASTS 66 /uL (0-3.1); PH,URINE 5.5 (5.0-8.0); URINE APPEARANCE CLOUDY; URINE BACTERIA 5 /uL (0-1359); URINE BILIRUBIN NEGATIVE (NEGATIVE); URINE COLOR YELLOW; URINE GLUCOSE (UA) NEGATIVE (NEGATIVE); URINE KETONE NEGATIVE (NEGATIVE); URINE LEUK ESTERASE 2+ (NEGATIVE); URINE NITRITE NEGATIVE (NEGATIVE); URINE PROTEIN TRACE (NEGATIVE); URINE UROBILINOGEN 0.2 mg/dL (0.2-1.0); URINE WBC 339 /uL (0-25.8)
[2021-08-25 11:21] LABS: URINE RBC 38.7 /uL (0-23.9)
[2021-08-25 11:42] LABS: CHLORIDE 118 mmol/L (98-107); SODIUM 147 mmol/L (136-145)
[2021-08-25 11:44] LABS: CALCIUM 8.8 mg/dL (8.5-10.1)
[2021-08-25 11:46] LABS: ALBUMIN 1.6 g/dl (3.4-5.0); ANION GAP 7 MMOL/L (8-16); BLOOD UREA NITROGEN 54.9 mg/dL (7-18); CO2 22 mmol/L (21-32); GLUCOSE,RANDOM 146 mg/dL (74-106); MAGNESIUM 1.5 mg/dL (1.8-2.4)
[2021-08-25 11:47] LABS: YEAST NON SEEN (NEGATIVE)
[2021-08-25 11:48] LABS: CREATININE 1.1 mg/dL (0.55-1.3); PHOSPHOROUS 1.5 mg/dL (2.5-4.9); SGOT/AST 21 U/L (15-37); SGPT/ALT 16 U/L (13-61)
[2021-08-25 11:50] LABS: BILIRUBIN,TOTAL 0.2 mg/dL (0.2-1); TOT PROT 5.5 g/dl (6.4-8.2)
[2021-08-25 11:51] LABS: ALK PHOS 180 U/L (45-117)
[2021-08-25] MEDS ORDERED: NAPH,MB-DB/K PH,MBDB POWDER PACKET PO ONE (12:14)
[2021-08-25] MEDS ORDERED: MAGNESIUM SULF 50% (8.12 MEQ/2 ML-1 GM VIAL) IVPB ONE (12:15)
[2021-08-25] MEDS ORDERED: NAPH,MB-DB/K PH,MBDB POWDER PACKET ONE (12:33)
[2021-08-25] MEDS ORDERED: MAGNESIUM SULFATE IN WATER 2 GM/50 ML IVPB IVPB ONE (12:34)
[2021-08-25] MEDS ORDERED: CEFTRIAXONE 1 GM in DEXTROSE 5%-WATER - 100 ML IVPB ONE (14:37)
[2021-08-25] MEDS ORDERED: CEFTRIAXONE 1 GM/50 ML BAG ONE (15:11)
[2021-08-25] MEDS ORDERED: ALBUTEROL SO4 HFA INHALER IH PRN (16:31)
[2021-08-25] MEDS ORDERED: POLYETHYLENE GLYCOL (HEALTHYLAX) 3350 17 GM PACKET PO PRN (16:31)
[2021-08-25] MEDS ORDERED: ACETAMINOPHEN 325 MG TABLET (FP) PO PRN (16:31)
[2021-08-25] MEDS ORDERED: SODIUM CHLORIDE 0.45%/POT 20 MEQ/1,000 ML INFUS.BAG IV SCH (16:45)
[2021-08-25] MEDS: SERTRALINE HCL 50 MG TABLET (FP) PO SCH (21:26)
[2021-08-25] MEDS: HEPARIN NA (PORCINE) 5,000 UNITS/ML 1ML VIAL SQ SCH (21:27)
[2021-08-25] MEDS: BUDESONIDE/FORMETEROL FUMARATE 80/4.5 mcg INHALER IH SCH (23:32)
[2021-08-26 08:53] LABS: BASO % 0.5 % (0-2.0); EOS % 1.2 % (0-4.5); HEMATOCRIT 28.5 % (32.4-45.2); HEMOGLOBIN 9.4 GM/dL (10.7-15.3); LYMPH % 11.5 % (8-40); MCH 27.4 pg (25.7-33.7); MCHC 32.8 g/dl (32.0-36.0); MEAN CELL VOLUME 83.6 fl (80-96); MEAN PLT VOLUME 7.8 fl (7.5-11.1); MONO % 3.3 % (3.8-10.2); NEUT % 83.5 % (42.8-82.8); PLATELET COUNT 338 10^3/uL (134-434); RBC 3.41 M/mm3 (3.60-5.2); RDW 20.8 % (11.6-15.6); WHITE BLOOD COUNT 11.7 K/mm3 (4.0-10.0)
[2021-08-26 09:29] LABS: ALBUMIN 1.7 g/dl (3.4-5.0); CALCIUM 9.1 mg/dL (8.5-10.1)
[2021-08-26 09:30] LABS: BLOOD UREA NITROGEN 46.8 mg/dL (7-18); MAGNESIUM 2.1 mg/dL (1.8-2.4)
[2021-08-26 09:35] LABS: BILIRUBIN,TOTAL 0.3 mg/dL (0.2-1); TOT PROT 5.5 g/dl (6.4-8.2)
[2021-08-26 09:47] LABS: ANISOCYTOSIS 1+; MACROCYTOSIS 1+; PLATELET ESTIMATE NORMAL
[2021-08-26] MEDS ORDERED: cefTRIAXone SODIUM 1 GM VIAL ONE (10:44)
[2021-08-26] MEDS ORDERED: DEXTROSE 5%-WATER - 50 ML IVPB ONE (10:44)
[2021-08-26] MEDS: FERROUS SO4 325 MG TABLET (FP) PO SCH (11:07)
[2021-08-26] MEDS: SERTRALINE HCL 50 MG TABLET (FP) PO SCH ×2 (11:07→21:22)
[2021-08-26] MEDS: QUEtiapine FUMARATE 50 MG TABLET PO SCH (11:07)
[2021-08-26] MEDS: HEPARIN NA (PORCINE) 5,000 UNITS/ML 1ML VIAL SQ SCH ×2 (11:08→21:22)
[2021-08-26] MEDS: CEFTRIAXONE 1 GM in DEXTROSE 5%-WATER - 50 ML IVPB SCH (11:08)
[2021-08-26] MEDS: LOSARTAN POTASSIUM 50 MG TABLET PO SCH (11:08)
[2021-08-26] MEDS: BUDESONIDE/FORMETEROL FUMARATE 80/4.5 mcg INHALER IH SCH ×2 (11:09→21:27)
[2021-08-26] MEDS ORDERED: PT OWN MED DRAWER 7, Y5N ONE (14:17)
[2021-08-26] MEDS: POTASSIUM CHLORIDE 10 MEQ in DEXTROSE 5%-WATER - 1,000 ML IV SCH (14:35)
[2021-08-26] MEDS: COLLAGENASE CLOSTRIDIUM HIST. 30 GRAMS TUBE TP SCH (14:36)
[2021-08-26] MEDS: AMINO ACIDS/PROTEIN HYDROLYS 30 ML LIQUID.PKT PO SCH (17:16)
[2021-08-27] MEDS: POTASSIUM CHLORIDE 10 MEQ in DEXTROSE 5%-WATER - 1,000 ML IV SCH ×2 (03:12→18:24)
[2021-08-27] MEDS: AMINO ACIDS/PROTEIN HYDROLYS 30 ML LIQUID.PKT PO SCH ×3 (09:03→18:24)
[2021-08-27] MEDS ORDERED: DEXTROSE 5%-WATER - 50 ML IVPB ONE (11:03)
[2021-08-27] MEDS ORDERED: cefTRIAXone SODIUM 1 GM VIAL ONE (11:03)
[2021-08-27] MEDS: CEFTRIAXONE 1 GM in DEXTROSE 5%-WATER - 50 ML IVPB SCH (11:15)
[2021-08-27] MEDS: QUEtiapine FUMARATE 50 MG TABLET PO SCH (11:16)
[2021-08-27] MEDS: FERROUS SO4 325 MG TABLET (FP) PO SCH (11:16)
[2021-08-27] MEDS: SERTRALINE HCL 50 MG TABLET (FP) PO SCH ×2 (11:16→21:57)
[2021-08-27] MEDS: LOSARTAN POTASSIUM 50 MG TABLET PO SCH (11:16)
[2021-08-27] MEDS: HEPARIN NA (PORCINE) 5,000 UNITS/ML 1ML VIAL SQ SCH ×2 (11:24→21:57)
[2021-08-27] MEDS: COLLAGENASE CLOSTRIDIUM HIST. 30 GRAMS TUBE TP SCH (11:36)
[2021-08-27] MEDS: BUDESONIDE/FORMETEROL FUMARATE 80/4.5 mcg INHALER IH SCH ×2 (11:50→21:57)
[2021-08-28] MEDS ORDERED: PT OWN MED DRAWER 7, Y5N ONE (08:59)
[2021-08-28] MEDS ORDERED: cefTRIAXone SODIUM 1 GM VIAL ONE (08:59)
[2021-08-28] MEDS ORDERED: DEXTROSE 5%-WATER - 50 ML IVPB ONE (09:00)
[2021-08-28] MEDS: AMINO ACIDS/PROTEIN HYDROLYS 30 ML LIQUID.PKT PO SCH ×3 (09:02→17:47)
[2021-08-28] MEDS: POTASSIUM CHLORIDE 10 MEQ in DEXTROSE 5%-WATER - 1,000 ML IV SCH ×2 (09:02→22:39)
[2021-08-28] MEDS: ASCORBIC ACID 250 MG TABLET (FP) PO SCH (09:02)
[2021-08-28] MEDS: CEFTRIAXONE 1 GM in DEXTROSE 5%-WATER - 50 ML IVPB SCH (09:08)
[2021-08-28] MEDS: MULTIVITAMINS (DAILY MVI) TABLET (FP) PO SCH (09:08)
[2021-08-28] MEDS: HEPARIN NA (PORCINE) 5,000 UNITS/ML 1ML VIAL SQ SCH ×2 (09:08→22:39)
[2021-08-28] MEDS: LOSARTAN POTASSIUM 50 MG TABLET PO SCH (09:08)
[2021-08-28] MEDS: SERTRALINE HCL 50 MG TABLET (FP) PO SCH ×2 (09:08→21:40)
[2021-08-28] MEDS: FERROUS SO4 325 MG TABLET (FP) PO SCH (09:08)
[2021-08-28] MEDS: QUEtiapine FUMARATE 50 MG TABLET PO SCH (09:08)
[2021-08-28] MEDS: COLLAGENASE CLOSTRIDIUM HIST. 30 GRAMS TUBE TP SCH (09:09)
[2021-08-28] MEDS: BUDESONIDE/FORMETEROL FUMARATE 80/4.5 mcg INHALER IH SCH ×2 (09:09→22:40)
[2021-08-28] MEDS ORDERED: MULTIVITAMINS (DAILY MVI) TABLET (FP) PO SCH (10:00)
[2021-08-28] MEDS ORDERED: ASCORBIC ACID 250 MG TABLET (FP) PO SCH (10:00)
[2021-08-29 08:45] LABS: HEMATOCRIT 27.4 % (32.4-45.2); HEMOGLOBIN 9.2 GM/dL (10.7-15.3); MCH 27.6 pg (25.7-33.7); MCHC 33.5 g/dl (32.0-36.0); MEAN CELL VOLUME 82.3 fl (80-96); MEAN PLT VOLUME 7.6 fl (7.5-11.1); PLATELET COUNT 404 10^3/uL (134-434); RBC 3.33 M/mm3 (3.60-5.2); RDW 19.8 % (11.6-15.6); WHITE BLOOD COUNT 9.1 K/mm3 (4.0-10.0)
[2021-08-29] MEDS: AMINO ACIDS/PROTEIN HYDROLYS 30 ML LIQUID.PKT PO SCH ×3 (08:56→17:05)
[2021-08-29 09:10] LABS: BLOOD UREA NITROGEN 25.2 mg/dL (7-18); CALCIUM 8.5 mg/dL (8.5-10.1)
[2021-08-29 09:13] LABS: CREATININE 0.8 mg/dL (0.55-1.3)
[2021-08-29] MEDS: HEPARIN NA (PORCINE) 5,000 UNITS/ML 1ML VIAL SQ SCH ×2 (10:26→21:00)
[2021-08-29] MEDS: SERTRALINE HCL 50 MG TABLET (FP) PO SCH ×2 (10:26→21:01)
[2021-08-29] MEDS: COLLAGENASE CLOSTRIDIUM HIST. 30 GRAMS TUBE TP SCH (10:26)
[2021-08-29] MEDS: LOSARTAN POTASSIUM 50 MG TABLET PO SCH (10:26)
[2021-08-29] MEDS: FERROUS SO4 325 MG TABLET (FP) PO SCH (10:26)
[2021-08-29] MEDS: MULTIVITAMINS (DAILY MVI) TABLET (FP) PO SCH (10:26)
[2021-08-29] MEDS: ASCORBIC ACID 250 MG TABLET (FP) PO SCH (10:26)
[2021-08-29] MEDS: QUEtiapine FUMARATE 50 MG TABLET PO SCH (10:26)
[2021-08-29] MEDS ORDERED: PT OWN MED DRAWER 7, Y5N ONE ×2 (11:26→12:38)
[2021-08-29 11:41] LABS: ANISOCYTOSIS 1+; MACROCYTOSIS 0; OVALOCYTE 1+; PLATELET ESTIMATE NORMAL; TEAR DROP CELLS 1+
[2021-08-29] MEDS: BUDESONIDE/FORMETEROL FUMARATE 80/4.5 mcg INHALER IH SCH ×2 (12:42→21:01)
[2021-08-29] MEDS ORDERED: AMOX TR/POT CLAV 500MG/125MG TABLETS (FP) PO SCH (17:30)
[2021-08-30 06:22] VITALS: BP 162/65; PULSE 93; TEMP 97.9
[2021-08-30] MEDS: HEPARIN NA (PORCINE) 5,000 UNITS/ML 1ML VIAL SQ SCH (09:00)
[2021-08-30] MEDS: AMINO ACIDS/PROTEIN HYDROLYS 30 ML LIQUID.PKT PO SCH (09:01)
[2021-08-30] MEDS: MULTIVITAMINS (DAILY MVI) TABLET (FP) PO SCH (09:01)
[2021-08-30] MEDS: SERTRALINE HCL 50 MG TABLET (FP) PO SCH (09:01)
[2021-08-30] MEDS: QUEtiapine FUMARATE 50 MG TABLET PO SCH (09:01)
[2021-08-30] MEDS: FERROUS SO4 325 MG TABLET (FP) PO SCH (09:01)
[2021-08-30] MEDS: LOSARTAN POTASSIUM 50 MG TABLET PO SCH (09:01)
[2021-08-30] MEDS: ASCORBIC ACID 250 MG TABLET (FP) PO SCH (09:01)
[2021-08-30] MEDS: BUDESONIDE/FORMETEROL FUMARATE 80/4.5 mcg INHALER IH SCH (09:02)
[2021-08-30] MEDS: COLLAGENASE CLOSTRIDIUM HIST. 30 GRAMS TUBE TP SCH (09:02)
== END 2021-08-30 11:54 | disposition home or self-care (01) | DRG 641 ==
LOC: JER 09:29 → JERBED 14:37 → OBSVTOIN 16:33 → J6S 18:52 → J8W 08-28 16:11
PROVIDERS: ADMIT Family Medicine; ATTEND Family Medicine
DX: E87.0 Hyperosmolality and hypernatremia (principal); N39.0 Urinary tract infection, site not specified; L97.829 Non-pressure chronic ulcer of other part of left lower leg with unspecified severity; E87.1 Hypo-osmolality and hyponatremia; G30.9 Alzheimer's disease, unspecified; F02.80 Dementia in other diseases classified elsewhere, unspecified severity, without behavioral disturbance, psychotic disturbance, mood disturbance, and anxiety; J44.9 Chronic obstructive pulmonary disease, unspecified; D50.9 Iron deficiency anemia, unspecified; I12.9 Hypertensive chronic kidney disease with stage 1 through stage 4 chronic kidney disease, or unspecified chronic kidney disease; E11.22 Type 2 diabetes mellitus with diabetic chronic kidney disease; N18.30 Chronic kidney disease, stage 3 unspecified; E86.0 Dehydration; E83.39 Other disorders of phosphorus metabolism; E83.42 Hypomagnesemia; E78.5 Hyperlipidemia, unspecified; Z79.4 Long term (current) use of insulin; F32.A Depression, unspecified; C50.919 Malignant neoplasm of unspecified site of unspecified female breast; R29.6 Repeated falls; R63.0 Anorexia; Z68.20 Body mass index [BMI] 20.0-20.9, adult
CPT/HCPCS: 36415; 70450-TC; 71045-TC-FY; 80048; 80053; 81003; 82550; 82962; 83735; 84100; 84443; 84484; 85025; 87086; 87186; 87899; 93005; 93010; 97161-GP; 99285-25; C9803; G0378; J1644; J3480; U0003; U0005